=== PATIENT | male | born 1950 | race Hispanic/Latino ===

== ENCOUNTER 2021-12-06 09:23 | Inpatient (IN) | payer OTHER, SELFPAY ==
--- NOTE | 2021-12-06 10:19 | RAD REPORT ---
EXAM DESCRIPTION: CT - Head Brain Wo Cont - 12/06/2021 10:07 am CLINICAL HISTORY: Neuro deficit, acute, stroke suspected COMPARISON: No comparisons TECHNIQUE: Axial 5 mm thick images of the head were obtained without IV contrast. All CT scans are performed using dose optimization technique as appropriate and may include automated exposure control or mA/KV adjustment according to patient size. FINDINGS: No intracranial hemorrhage, mass, edema or shift of mid-line structures. No cortical based infarction seen. No cortical edema or sulcal effacement. Atrophy changes are mild. Ventricles are in proportion to any volume loss. No abnormal extra-axial fluid collections. Prominent chronic ischemic changes are seen throughout the cerebral white matter and extending to a lesser degree in the basal ganglia and thalamus tissues. There may be minimal brainstem chronic ischemic change as well. Arteria l tree calcifications are present. Mastoid air cells are clear. Mucosal thickening and air-fluid level present in the left maxillary sin us where there is circumferential sinus wall thickening. No acute bony findings. IMPRESSION: No acute intracranial finding identifiable. Moderate severity chronic ischemic change throughout the cerebral white matter extending into the bas al ganglia and thalamus tissues to a lesser degree. Chronic ischemic changes can mask nonhemorrhagic acute infarction. MR brain followup can be obtained if there is ongoing concern for acute ischemia.
[2021-12-06 10:30] LABS: Absolute Lymphocytes (CBC) 0.8 K/uL (0.7-4.9); Hematocrit 46.9 % (39.6-49.0); Lymphocytes % 12.1 % (15.3-44.8); MPV 7.8 fL (7.6-11.3); RBC Red Blood Cell Count 4.82 M/uL (4.33-5.43)
[2021-12-06 10:31] LABS: Protime INR 1.19
[2021-12-06 10:42] LABS: Bilirubin Direct 0.2 mg/dL (0-0.2); Bilirubin Total 0.8 mg/dL (0.2-1.0); Magnesium 2.3 mg/dL (1.8-2.4); Potassium 3.6 mmol/L (3.5-5.1); Protein, Total 8.5 g/dL (6.4-8.2); Troponin High Sensitivity 4.9 pg/mL (<58.9)
--- NOTE | 2021-12-06 10:55 | RAD REPORT ---
EXAM DESCRIPTION: MRI - Brain Wo Cont - 12/06/2021 10:34 am CLINICAL HISTORY: Neuro deficit, acute, stroke suspected COMPARISON: Head Brain Wo Cont dated 12/06/2021 TECHNIQUE: Sagittal T1-weighted images were obtained along with axial PD, heavily T2-weighted and T2 -FLAIR images. Axial DWI and ADC mapping sequences were also obtained along with coronal heavily T2-w eighted images. FINDINGS: No intracranial hemorrhage is present. In the posterior most aspect of the left insular co rtex there is a 10 millimeter sized area of abnormal diffusion. There is corresponding area of dimini shed signal on ADC mapping. Additional areas of abnormal restricted diffusion are scattered in the le ft parietal white matter from subcortical tuft periventricular in distribution. These also have corre sponding areas of diminished signal on ADC mapping. These acute stroke findings are superimposed on t he prominent chronic ischemic pattern seen on the earlier CT study. Atrophy changes are mild. Ventric les are normal in size. There is no edema or shift of midline structures. No extra-axial fluid collec tions. King-matter/white matter junction is preserved. Signal voids are seen as a normal finding in t he major intracranial vessels. No globe or orbital content abnormality seen. No sella or supra sella abnormality. 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 Scattered acute/subacute nonhemorrhagic infarction foci in the left parietal white matter from subcor tical to periventricular in location.
[2021-12-06] MEDS ORDERED: ASPIRIN 81 MG CHEWABLE TABLET ONE (11:13)
--- NOTE | 2021-12-06 11:14 | RAD REPORT ---
EXAM DESCRIPTION: RAD - Chest Single View - 12/06/2021 10:40 am CLINICAL HISTORY: weakness COMPARISON: None available TECHNIQUE: AP portable chest image was obtained 12/06/2021 10:40 am . FINDINGS: Lungs are clear. Hilar regions within normal limits. Heart and vasculature are normal. No measurable pleural effusion and no pneumothorax. No acute bony abnormality seen. No acute aortic find ings suspected. IMPRESSION: No acute cardiopulmonary process.
[2021-12-06 11:57] LABS: SARS-COV-2 RT PCR NEGATIVE (NEGATIVE)
--- NOTE | 2021-12-06 11:59 | RAD REPORT ---
EXAM DESCRIPTION: CT - Neck Angio - 12/06/2021 11:37 am CLINICAL HISTORY: Neuro deficit, acute, stroke suspected TECHNIQUE: During dynamic enhancement using nonionic IV contrast, axial 2 mm thick images of the nec k were obtained. Sagittal and axial reconstruction images were generated using MIP technique and revi ewed. All CT scans are performed using dose optimization technique as appropriate and may include automated exposure control or mA/KV adjustment according to patient size. COMPARISON: MRI brain same date FINDINGS: No aneurysm or vascular malformation identified. No carotid or vertebral dissection. No aortic arch or great vessel origin abnormality seen. Patient has normal variant bovine arch config uration. Vertebral artery origins unremarkable as well. No stenosis, vasculitis or other significant carotid artery finding. No focal abnormality of either vertebral artery. Basilar artery is normal. IMPRESSION: Negative CT angio neck examination for acute or significant finding.
[2021-12-06] MEDS ORDERED: NA CHLORIDE 0.9% 250 ML ONE (12:03)
[2021-12-06] MEDS ORDERED: FOLIC ACID 5 MG/ML VIAL ONE (12:04)
--- NOTE | 2021-12-06 12:07 | RAD REPORT ---
EXAM DESCRIPTION: CT - Head angio - 12/06/2021 11:37 am CLINICAL HISTORY: Neuro deficit, acute, stroke suspected TECHNIQUE: During dynamic enhancement using nonionic IV contrast, axial 1 millimeter thick images of the head were obtained. Sagittal and axial reconstruction images were generated using MIP technique and reviewed. All CT scans are performed using dose optimization technique as appropriate and may include automated exposure control or mA/KV adjustment according to patient size. COMPARISON: No aneurysm or vascular malformation identifiable. Atherosclerotic wall calcifications are present in the distal internal carotid arteries with no significant luminal narrowing. Patient esteves s normal variant persistent origin of the right posterior cerebral artery. There is a large rig ht posterior communicating artery. The anterior cerebral artery A1 segment is absent or very small. A nterior communicating artery is present. The anterior, middle and posterior cerebral artery periphera l distribution show no named branch occlusion, vasculitis or significant atherosclerotic changes. No specific vessel abnormality for the known acute areas of left cerebral CVA. FINDINGS: No significant atherosclerotic changes are identifiable. No named branch occlusion or specific CTA finding corresponding to the areas of known left cerebral i nfarction. Major venous sinuses are patent. IMPRESSION: Negative CT angio head examination.
--- NOTE | 2021-12-06 12:39 | ER ---
Nurse's Notes [facility] Name: aGry Shanks Age: 71 yrs Sex: Male : 1950 Arrival Date: 12/06/2021 Time: : Bed 16 Private MD: Diagnosis: Cerebral infarction, unspecified Presentation: 12/06 09:33 Chief complaint: Pt's son states "he's been disoriented since yesterday and he slept aa5 most of the day yesterday". pt's son states "I just noticed he was having trouble using his right arm today putting his seat belt on". Expressive aphasia noted during triage, no arm drift, no facial droop. 09:33 Coronavirus screen: At this time, the client does not indicate any symptoms associated aa5 with coronavirus-19. Ebola Screen: No symptoms or risks identified at this time. Initial Sepsis Screen: Does the patient meet any 2 criteria? No. Patient's initial sepsis screen is negative. Does the patient have a suspected source of infection? No. Patient's initial sepsis screen is negative. Risk Assessment: Do you want to hurt yourself or someone else? Unable to obtain. Onset of symptoms was November 2021. 09:33 Acuity: DANY 2 aa5 09:33 Method Of Arrival: Ambulatory aa5 Triage Assessment: 10:06 General: Appears in no apparent distress. comfortable, Behavior is calm, cooperative, ap3 appropriate for age. Pain: Denies pain. Neuro: Level of Consciousness is awake, alert, Oriented to person, place, Speech with expressive aphasia noted. Cardiovascular: Patient's skin is warm and dry. Respiratory: Airway is patent Respiratory effort is even, unlabored. Historical: - Allergies: : No Known Allergies; aa5 - Home Meds: 12:20 omeprazole 40 mg Oral cpDR 1 cap once daily [Active]; allopurinol 300 mg Oral tab 1 tab ap3 once daily [Active]; metoprolol tartrate 50 mg Oral tab 1 tab 2 times per day [Active]; amlodipine 10 mg tab 1 tab once daily [Active]; - PMHx: :44 Hypertensive disorder; aa5 - PSHx: :44 None; aa5 - Immunization history:: Adult Immunizations unknown. - Social history:: Smoking status: Patient denies any tobacco usage or history of. Screenin:05 Abuse screen: Denies threats or abuse. Nutritional screening: No deficits noted. ap3 Tuberculosis screening: No symptoms or risk factors identified. Fall Risk None identified. No fall in past 12 months (0 pts). Secondary diagnosis (15 points) altered mental status. IV access (20 points). Ambulatory Aid- None/Bed Rest/Nurse Assist (0 pts). Total Marie Fall Scale indicates Low Risk Score (25-44 pts). Fall prevention measures have been instituted. Side Rails Up X 2 Placed close to Nursing Station Frequent Obs/Assesments occuring Family Present and informed to notify staff if they need to leave bedside As available Patient and Family Educated on Fall Prevention Program and strategies. Assessment: 10:08 Pain: Denies pain. ap3 10:59 General: Appears comfortable, Behavior is calm, cooperative. Neuro: Speech with ap3 expressive aphasia noted. 11:44 Reassessment:. ap3 Vital Signs: 09:33 BP 141 / 71; Pulse 80; Resp 18 S; Temp 98.2(O); Pulse Ox 98% on R/A; Weight 96.62 kg aa5 (M); 11:00 BP 140 / 79 (auto/); Pulse 73; Pulse Ox 99% on R/A; ap3 11:44 BP 152 / 82; Pulse 73; Pulse Ox 97% on R/A; ap3 12:37 BP 141 / 91; Pulse 75; Pulse Ox 97% on R/A; ap3 NIH Stroke Scale Scores: 10:05 NIHSS Score: 7 ap3 ED Course: 09:25 Patient arrived in ED. as 09:33 Arm band placed on Patient placed in an exam room, on a stretcher. aa5 09:34 Papito Centeno PA is PHCP. jm 09:34 Philip Kay MD is Attending Physician. jm 09:35 Ning Krishna, COLIN is Primary Nurse. ap3 09:44 Triage completed. aa5 09:54 EKG done, by ED staff, reviewed by Papito BONE. mh5 09:55 Patient has correct armband on for positive identification. Placed in gown. Bed in low mh5 position. Call light in reach. Side rails up X2. Adult w/ patient. Warm blanket given. machine chain maker on. Pulse ox on. NIBP on. 10:02 Inserted saline lock: 20 gauge in left antecubital area, using aseptic technique. Blood ap3 collected. 10:08 CT Head Brain wo Cont In Process Unspecified. EDMS 10:35 MRI - Brain Wo Cont In Process Unspecified. EDMS 10:42 XRAY Chest (1 view) In Process Unspecified. EDMS 10:47 COVID-19/FLU A+B (Document "Date of Onset" if Symptomatic) Sent. mh5 10:47 COVID swab sent to lab. mh5 11:[address] stretcher. ap3 11:39 Head angio In Process Unspecified. EDMS 11:39 CT Neck Angio In Process Unspecified. EDMS 12:23 Admitting physician to see patient. ap3 12:38 Saqib Izquierdo MD is Hospitalizing Provider. jmm 14:30 No provider procedures requiring assistance completed. Patient admitted, IV remains in ap3 place. Administered Medications: 11:14 Drug: Aspirin Chewable Tablet 324 mg Route: PO; ap3 14:31 Follow up: Response: No adverse reaction ap3 11:16 CANCELLED (Duplicate Order): PlaVIX (clopidogrel) 75 mg PO once jmm 11:17 CANCELLED (Duplicate Order): Eliquis (apixaban) 5 mg PO once jmm 12:07 Drug: NS 0.9% 250 ml Route: IV; Rate: calculated rate; Site: left antecubital; ap3 14:31 Follow up: Response: No adverse reaction; IV Status: Completed infusion ap3 12:08 Drug: foLIC Acid 1 mg Route: IVPB; Site: left antecubital; ap3 14:31 Follow up: IV Status: Completed infusion ap3 Outcome: 12:39 Decision to Hospitalize by Provider. jmm 14:30 Admitted to ER Hold. Please see [facility] for further documentation. ap3 14:30 Condition: good 14:30 Discharge instructions given to patient, family, Instructed on the need for admit. 18:42 Patient left the ED. ap3 NIH Stroke Scale - NIH Stroke Score Date: 12/06/2021 Time: 10:05 Total Score = 7 1a. Level of Consciousness (LOC) - 0(Alert) 1b. Level of Consciousness (LOC) (Month \\T\\ Age) - 1(One) 1c. LOC Commands (Open \\T\\ Closes Eyes/Group Practice Pediatrician) - 0(Both) 2. Best Gaze (Lateral Gaze Paresis) - 0(Normal) 3. Visual Field Loss - 1(Partial hemianopia) 4. Facial Palsy - 0(Normal) 5a. Left Arm: Motor (10-second hold) - 0(No drift) 5b. Right Arm: Motor (10-second hold) - 0(No drift) 6a. Left Leg: Motor (5-second hold - always test supine) - 0(No drift) 6b. Right Leg: Motor (5-second hold - always test supine) - 0(No drift) 7. Limb Ataxia (finger/nose \\T\\ heel/[place] - test with eyes open) - 1(Present in one limb) 8. Sensory Loss (pinprick arms/legs/face) - 0(Normal) 9. Best Language: Aphasia (description/naming/reading) - 2(Severe aphasia) 10. Dysarthria (speech clarity - read or repeat words) - 2(Severe) 11. Extinction and Inattention (visual/tactile/auditory/spatial/personal) - 0(No abnormality) Initials: ap3 Signatures: Dispatcher [employer] EDMS Papito Centeno PA PA jmm Martinez, Amelia as Calderon, Audri, RN RN aa5 Esthela Cisneros [facility] Ning Krishna RN RN ap3 Corrections: (The following items were deleted from the chart) 09:45 09:44 PMHx: None; aa5 aa5 10:04 10:03 Neuro: ap3 ap3
--- NOTE | 2021-12-06 12:39 | EDPHYS ---
Physician Documentation [facility] Name: Gary Shanks Age: 71 yrs Sex: Male : 1950 Arrival Date: 12/06/2021 Time: : Bed 16 Private MD: ED Physician Philip Kay HPI: 12/06 09:49 This 71 yrs old Male presents to ER via Ambulatory with complaints of jmm disoriented. 09:49 The patient presents with decreased mental status, disorientation. Onset: The jmm symptoms/episode began/occurred yesterday. Possible causes: unknown. . 10:38 Associated signs and symptoms: Pertinent negatives:. jmm 10:38 Current symptoms: In the emergency department the patient's symptoms. jmm 10:38 This is a 71 year old male with a history of HTN that presents to the ED with ams, jmm confusion beginning yesterday according to the patient's son. Patient has had cough, congestion over the past week and slept most of the day yesterday. Son stated patient was having difficulty using his right arm to put his seatbelt on enroute to the ER. . Historical: - Allergies: 09:44 No Known Allergies; aa5 - Home Meds: 12:20 omeprazole 40 mg Oral cpDR 1 cap once daily [Active]; allopurinol 300 mg Oral tab 1 tab ap3 once daily [Active]; metoprolol tartrate 50 mg Oral tab 1 tab 2 times per day [Active]; amlodipine 10 mg tab 1 tab once daily [Active]; - PMHx: 09:44 Hypertensive disorder; aa5 - PSHx: 09:44 None; aa5 - Immunization history:: Adult Immunizations unknown. - Social history:: Smoking status: Patient denies any tobacco usage or history of. ROS: 12:35 Constitutional: Positive for fatigue. jmm 12:35 Respiratory: Positive for cough. 12:35 Neuro: Positive for speech changes. 12:35 All other systems are negative. Exam: 12:35 Head/Face: atraumatic. Eyes: EOMI, no conjunctival erythema appreciated ENT: Moist jmm Mucus Membranes Neck: Trachea midline, Supple Chest/axilla: Normal chest wall appearance and motion. Cardiovascular: Regular rate and rhythm. No edema appreciated Respiratory: Normal respirations, no respiratory distress appreciated Abdomen/GI: Non distended, soft Back: Normal ROM Skin: General appearance color normal 12:35 Constitutional: The patient appears in no acute distress, alert, awake. 12:35 Musculoskeletal/extremity: ROM: intact in all extremities. 12:35 Skin: Appearance: Color: normal in color. 12:35 Neuro: Orientation: is normal, Mentation: is normal, Memory: is normal, Cranial nerves: Facial palsy and sensory deficits are absent. Speech is slowed, Cerebellar function: dysmetria is noted on the right, Motor: moves all fours, strength is 5/5 in all extremities. 12:35 Psych: Behavior/mood is pleasant, cooperative. Vital Signs: 09:33 BP 141 / 71; Pulse 80; Resp 18 S; Temp 98.2(O); Pulse Ox 98% on R/A; Weight 96.62 kg aa5 (M); 11:00 BP 140 / 79 (auto/); Pulse 73; Pulse Ox 99% on R/A; ap3 11:44 BP 152 / 82; Pulse 73; Pulse Ox 97% on R/A; ap3 12:37 BP 141 / 91; Pulse 75; Pulse Ox 97% on R/A; ap3 NIH Stroke Scale Scores: 10:05 NIHSS Score: 7 ap3 MDM: 09:49 Patient medically screened. [facility] 12:37 Data reviewed: vital signs, nurses notes. Counseling: I had a detailed discussion with monica the patient and/or guardian regarding: the historical points, exam findings, and any diagnostic results supporting the discharge/admit diagnosis, lab results, radiology results, the need for further work-up and treatment in the hospital. ED course: I discussed the patient with Dr. Izquierdo and Dr. Guillermo whom accepted the patient for admission. . 12/06 09:50 Order name: Basic Metabolic Panel; Complete Time: 10:44 [facility] 12/06 09:50 Order name: CBC with Diff; Complete Time: 10:34 [facility] 12/06 09:50 Order name: LFT's; Complete Time: 10:44 [facility] 12/06 09:50 Order name: Magnesium; Complete Time: 10:44 [facility] 12/06 09:50 Order name: NT PRO-BNP; Complete Time: 10:44 [facility] 12/06 09:50 Order name: PT-INR; Complete Time: 10:34 [facility] 12/06 09:50 Order name: Troponin HS; Complete Time: 10:44 [facility] 12/06 09:53 Order name: Blood Culture Adult (2) [facility] 12/06 09:53 Order name: Procalcitonin; Complete Time: 11:06 [facility] 12/06 09:53 Order name: Lactate; Complete Time: 10:41 [facility] 12/06 10:03 Order name: Urine Culture [facility] 12/06 10:38 Order name: COVID-19/FLU A+B (Document "Date of Onset" if Symptomatic); Complete Time: [facility] 12:01 12/06 11:16 Order name: Lipid Profile; Complete Time: 12:52 [facility] 12/06 13:27 Order name: Magnesium [facility] 12/06 09:50 Order name: XRAY Chest (1 view); Complete Time: 11:32 [facility] 12/06 09:50 Order name: CT Head Brain wo Cont; Complete Time: 10:24 [facility] 12/06 10:03 Order name: MRI - Brain Wo Cont; Complete Time: 11:06 [facility] 12/06 11:19 Order name: CT Head Angio [facility] 12/06 11:19 Order name: CT Neck Angio; Complete Time: 12:01 [facility] 12/06 11:23 Order name: Head angio; Complete Time: 12:14 [facility] 12/06 13:27 Order name: Echo with Doppler [facility] 12/06 13:27 Order name: Thyroid Stimulating Hormone [facility] 12/06 13:27 Order name: CBC with Automated Diff [facility] 12/06 13:27 Order name: CBC with Automated Diff [facility] 12/06 13:27 Order name: CKMB Creatine Kinase MB [facility] 12/06 13:27 Order name: CKMB Creatine Kinase MB [facility] 12/06 13:27 Order name: Comprehensive Metabolic Panel [facility] 12/06 13:27 Order name: Comprehensive Metabolic Panel [facility] 12/06 13:27 Order name: Creatine Phosphokinase [facility] 12/06 13:27 Order name: Creatine Phosphokinase [facility] 12/06 09:50 Order name: EKG; Complete Time: 09:51 [facility] 12/06 09:50 Order name: Cardiac monitoring; Complete Time: 10:14 [facility] 12/06 09:50 Order name: EKG - Nurse/Tech; Complete Time: 09:52 [facility] 12/06 09:50 Order name: IV Saline Lock; Complete Time: 10:14 [facility] 12/06 09:50 Order name: Labs collected and sent; Complete Time: 10:14 [facility] 12/06 09:50 Order name: O2 Per Protocol; Complete Time: 10:14 [facility] 12/06 09:50 Order name: O2 Sat Monitoring; Complete Time: 10:14 [facility] 12/06 13:21 Order name: Social Service Consult [facility] 12/06 13:27 Order name: CONS Physician Consult [facility] 12/06 13:27 Order name: CONS Physician Consult [facility] 12/06 13:27 Order name: Occupational Therapy Consult [facility] 12/06 13:27 Order name: Physical Therapy Consult [facility] 12/06 13:27 Order name: Heart Healthy [facility] 12/06 13:27 Order name: NPO [facility] 12/06 13:27 Order name: NPO [facility] 12/06 13:27 Order name: NPO [facility] Administered Medications: 11:14 Drug: Aspirin Chewable Tablet 324 mg Route: PO; ap3 14:31 Follow up: Response: No adverse reaction ap3 11:16 CANCELLED (Duplicate Order): PlaVIX (clopidogrel) 75 mg PO once [facility] 11:17 CANCELLED (Duplicate Order): Eliquis (apixaban) 5 mg PO once [facility] 12:07 Drug: NS 0.9% 250 ml Route: IV; Rate: calculated rate; Site: left antecubital; ap3 14:31 Follow up: Response: No adverse reaction; IV Status: Completed infusion ap3 12:08 Drug: foLIC Acid 1 mg Route: IVPB; Site: left antecubital; ap3 14:31 Follow up: IV Status: Completed infusion ap3 Disposition: 19:04 Co-signature as Attending Physician, Philip Kay MD. rn Disposition Summary: 12/06/21 12:39 Hospitalization Ordered Hospitalization Status: Inpatient Admission [facility] Provider: Saqib Izquierdo Location: Telemetry/MedSurg (Inpatient) [facility] Condition: Stable jm Problem: new jmm Symptoms: are unchanged [facility] Bed/Room Type: Standard [facility] Room Assignment: 207(12/06/21 17:05) bd Diagnosis - Cerebral infarction, unspecified [facility] Forms: - Medication Reconciliation Form jmm - SBAR form [facility] NIH Stroke Scale - NIH Stroke Score Date: 12/06/2021 Time: 10:05 Total Score = 7 1a. Level of Consciousness (LOC) - 0(Alert) 1b. Level of Consciousness (LOC) (Month \\T\\ Age) - 1(One) 1c. LOC Commands (Open \\T\\ Closes Eyes/[employer] Steam [employer]) - 0(Both) 2. Best Gaze (Lateral Gaze Paresis) - 0(Normal) 3. Visual Field Loss - 1(Partial hemianopia) 4. Facial Palsy - 0(Normal) 5a. Left Arm: Motor (10-second hold) - 0(No drift) 5b. Right Arm: Motor (10-second hold) - 0(No drift) 6a. Left Leg: Motor (5-second hold - always test supine) - 0(No drift) 6b. Right Leg: Motor (5-second hold - always test supine) - 0(No drift) 7. Limb Ataxia (finger/nose \\T\\ heel/[place] - test with eyes open) - 1(Present in one limb) 8. Sensory Loss (pinprick arms/legs/face) - 0(Normal) 9. Best Language: Aphasia (description/naming/reading) - 2(Severe aphasia) 10. Dysarthria (speech clarity - read or repeat words) - 2(Severe) 11. Extinction and Inattention (visual/tactile/auditory/spatial/personal) - 0(No abnormality) Initials: ap3 Signatures: Dispatcher [employer] EDMS Migdalia Desai Joel, PA PA [facility] Philip Kay MD MD rn Calderon, Audri, RN RN aa5 Ning Krishna RN RN ap3 Corrections: (The following items were deleted from the chart) 09:45 09:44 PMHx: None; aa5 [email or web address] 11:16 11:15 PlaVIX (clopidogrel) 75 mg PO once ordered. [facility] 11:17 11:16 Eliquis (apixaban) 5 mg PO once ordered. [facility] 12:36 10:38 This is a 71 year old male with a history of HTN that presents to the ED [facility] with ams, confusion beginning yesterday according to the patient's son. Patient has had cough, congestion over the past week and slept most of the day yesterday. . monica Chen:05 12:39 [facility] bd
--- NOTE | 2021-12-06 13:16 | P.HP ---
Certification for Inpatient With expected LOS: >2 Midnights Patient will require the following post-hospital care: Rehabilitation Practitioner: I am a practitioner with admitting privileges, knowledge of patient current condition, hospital course, and medical plan of care. Services: Services provided to patient in accordance with Admission requirements found in Title 42 Section 412.3 of the Code of Federal Regulations Patient History Date of Service: 12/06/21 Reason for admission: Inability to move the right arm, weakness History of Present Illness: 71-year-old male past medical history of hypertension, GI bleed status post EGD finding of both gastric and duodenal ulcer in 2014 on chronic PPI, admitted now after complaining of weakness chest congestion since the last 1 week. No associated fever or chills. No sick contact. Patient was noted by son to have difficulty with moving the right above the shoulder level earlier this morning. He was also felt to have soft speech difficulty. He was brought to the emergency room in the emergency room patient was noted with mild dysarthria izkcca-sl-fdra test on the right side. He had a head CT done with no acute intracranial pathology or bleed. He had a CT of the head and neck done which was normal findings. 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 Patient also had an EKG showing new onset A. fib but rate controlled at 75 bpm. Son states no previous history of cardiac disease. neurology has been consulted and recommended. At the time of interview dysarthria has resolved, still mild difficulty with giyiab-gr-znzq test but no asymmetrical weakness elicited. He has been admitted for new onset CVA as well as atrial fibrillation Allergies No Known Allergies Allergy (Verified 05/06/15 00:31) Home Medications: Amlodipine [Norvasc*] 10 mg PO DAILY #30 tab 05/08/15 Metoprolol Tartrate [Lopressor] 50 mg PO BID #60 tab 05/08/15 Pantoprazole [Protonix Tab*] 40 mg PO BIDAC #60 tab 05/08/15 chlordiazePOXIDE HCl [Librium*] 10 mg PO TID #60 cap 05/08/15 Colchicine [Colcrys *] 0.6 mg PO DAILY PRN #30 tab 05/09/15 allopurinoL [Zyloprim*] 100 mg PO DAILY #30 tab 05/09/15 - Past Medical/Surgical History Diabetic: No -: Hypertension -: GI bleed -: Gastric or duodenal ulcer -: Status post EGD in 2015 - Family History Family History: Reviewed- Non-Contributory - Family History Mother -: Heart disease Father -: GI disease - Social History Smoking Status: Former smoker Counseled patient to stop smoking for: less than 10 minutes Smoking therapy provided: No Patient receptive to therapy: No Alcohol use: Yes CD- Drugs: No Caffeine use: Yes Place of Residence: Home Review of Systems 10-point ROS is otherwise unremarkable Physical Examination - Physical Exam General: Alert, In no apparent distress, Oriented x3 (Average built elderly male) HEENT: Atraumatic, Normocephalic, PERRLA Neck: Supple, 2+ carotid pulse no bruit, JVD not distended Respiratory: Clear to auscultation bilaterally, Normal air movement Cardiovascular: No edema, Normal pulses, Normal S1 S2, No murmurs, Irregular heart rate/rhythm Capillary refill: <2 Seconds Gastrointestinal: Normal bowel sounds, Soft and benign, Non-distended, No tenderness Musculoskeletal: No clubbing, No swelling, No contractures Neurological: Normal gait, Normal speech, Normal strength at 5/5 x4 extr, Sensation intact, Cranial nerves 3-12 intact, Normal reflexes 2+, Other (mild diff with right fingr to nose test , no pronator drift ) External genitalia: No edema, No lesions - Studies Laboratory Data (last 24 hrs) 12/06/21 10:03: Triglycerides 116, Cholesterol 208 H, HDL Cholesterol 54, Cholesterol/HDL Ratio 3.85 12/06/21 10:03: PT 13.1 H, INR 1.19 12/06/21 10:03: WBC 6.9, Hgb 16.3, Hct 46.9, Plt Count 260 12/06/21 10:03: Sodium 133 L, Potassium 3.6, BUN 14, Creatinine 1.29, Glucose 103, Magnesium 2.3, Total Bilirubin 0.8, AST 28, ALT 31, Alkaline Phosphatase 112 Assessment and Plan Discharge Plan: Home Plan to discharge in: 48 Hours - Advance Directives Does patient have a Living Will: No Does patient have a Durable POA for Healthcare: No - Code Status/Comfort Care Code Status: Full Code Physician Review: Patient Assessed, Agree with Above Assessment and Plan Physician Review Additional Text: CT - Neck Angio - 12/06/2021 11:37 am CLINICAL HISTORY: Neuro deficit, acute, stroke suspected TECHNIQUE: During dynamic enhancement using nonionic IV contrast, axial 2 mm thick images of the neck were obtained. Sagittal and axial reconstruction images were generated using MIP technique and reviewed. All CT scans are performed using dose optimization technique as appropriate and may include automated exposure control or mA/KV adjustment according to patient size. COMPARISON: MRI brain same date FINDINGS: No aneurysm or vascular malformation identified. No carotid or vertebral dissection. No aortic arch or great vessel origin abnormality seen. Patient has normal variant bovine arch configuration. Vertebral artery origins unremarkable as well. No stenosis, vasculitis or other significant carotid artery finding. No focal abnormality of either vertebral artery. Basilar artery is normal. IMPRESSION: Negative CT angio neck examination for acute or significant finding. MRI brain No globe or orbital content abnormality seen. No sella or supra sella abnormality. 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 Scattered acute/subacute nonhemorrhagic infarction foci in the left parietal white matter from subcortical to periventricular in location. Chest Single View - 12/06/2021 10:40 am CLINICAL HISTORY: weakness COMPARISON: None available TECHNIQUE: AP portable chest image was obtained 12/06/2021 10:40 am . FINDINGS: Lungs are clear. Hilar regions within normal limits. Heart and vasculature are normal. No measurable pleural effusion and no pneumothorax. No acute bony abnormality seen. No acute aortic findings suspected. IMPRESSION: No acute cardiopulmonary process. Impression/plan New onset atrial fibrillation -left cerebral infarct/CVA -Hypertension -History of GI bleed Plan We will admit patient to inpatient status Will consult formal neurology consultrecommend initiating Plavix/Eliquis Obtain echocardiogram given new onset A. fib Obtain lipid panel in a.m. Cardiology consult Seen rate control, resume patient home dose of metoprolol Obtain TSH/magnesium level Restart PPIincreased dose to twice daily Follow-up plan for Eliquis use for DVT prophylaxis also Advance directivefull code Patient and son at bedside discussed with in detail. We will consult case management as well as PT/OT for acute rehab evaluation Time Spent Managing Pts Care (In Minutes): 70
[2021-12-06] MEDS ORDERED: ALBUTEROL 2.5 MG/3 ML NEB SOL NEB PRN (13:19)
[2021-12-06] MEDS ORDERED: MORPHINE 2 MG/ML SYR IV PRN (13:19)
[2021-12-06] MEDS ORDERED: ACETAMINOPHEN 500 MG TAB PO PRN (13:19)
[2021-12-06] MEDS ORDERED: ONDANSETRON 4 MG/2 ML VIAL IV PRN (13:19)
[2021-12-06] MEDS ORDERED: LORAZEPAM 0.5 MG TABLET PO PRN (13:24)
[2021-12-06] MEDS: NA CHLORIDE 0.9% 1,000 ML IV SCH (14:00)
[2021-12-06 14:22] VITALS: BMI 29.7
[2021-12-06] MEDS ORDERED: NA CHLORIDE 0.9% 1,000 ML ONE (14:40)
[2021-12-06] MEDS: METOPROLOL TAR 25 MG TAB PO SCH (20:33)
[2021-12-06] MEDS: ATORVASTATIN 80 MG TAB PO SCH (20:33)
[2021-12-06] MEDS: PANTOPRAZOLE 40MG TABLET PO SCH (20:33)
[2021-12-06] MEDS: APIXABAN 5 MG TABLET PO SCH (20:33)
[2021-12-07] MEDS: NA CHLORIDE 0.9% 1,000 ML IV SCH (03:39)
[2021-12-07] MEDS: METOPROLOL TAR 25 MG TAB PO SCH ×2 (06:05→16:41)
[2021-12-07 06:07] LABS: Absolute Lymphocytes (CBC) 1.2 K/uL (0.7-4.9); Hematocrit 43.9 % (39.6-49.0); Lymphocytes % 22.5 % (15.3-44.8); MPV 7.3 fL (7.6-11.3)
[2021-12-07 06:25] LABS: ALT/SGPT 27 U/L (12-78); AST/SGOT 22 U/L (15-37); Albumin 3.3 g/dL (3.4-5.0); Alkaline Phosphatase 93 U/L (45-117); BUN Blood Urea Nitrogen 11 mg/dL (7-18); Bicarbonate 25 mmol/L (21-32); Bilirubin Total 0.6 mg/dL (0.2-1.0); Creatine Phosphokinase 89 U/L (39-308); Glucose Level 112 mg/dL (74-106); Potassium 3.5 mmol/L (3.5-5.1); Protein, Total 7.2 g/dL (6.4-8.2); Sodium Level 136 mmol/L (136-145)
[2021-12-07 06:31] LABS: CKMB Creatine Kinase MB < 1.0 ng/mL (1.0-3.6)
[2021-12-07 06:31] LABS: Urine Appearance Clear (Clear); Urine Bilirubin Negative (Negative); Urine Blood Trace-intact (Negative); Urine Color Yellow (Yellow); Urine Glucose Negative (Negative); Urine Protein Negative (Negative)
[2021-12-07 06:36] LABS: Urine Bacteria >50 /HPF (NONE SEEN); Urine Microscopic Reflex ORDER UMIC; Urine RBC <5 /HPF (NONE SEEN)
--- NOTE | 2021-12-07 08:54 | P.PN ---
Subjective Date of Service: 12/07/21 Chief Complaint: Inability to move the right arm, weakness Subjective: No new changes, Tolerating diet (Seen today, feels fine, no new weakness) Physical Examination - Vital Signs Temperature: 98.9 F Blood Pressure: 115/63 Pulse: 67 Respirations: 18 Pulse Ox (%): 94 - Studies Laboratory Data (last 24 hrs) 12/06/21 10:03: Triglycerides 116, Cholesterol 208 H, HDL Cholesterol 54, Cholesterol/HDL Ratio 3.85 12/06/21 10:03: PT 13.1 H, INR 1.19 12/06/21 10:03: WBC 6.9, Hgb 16.3, Hct 46.9, Plt Count 260 12/06/21 10:03: Sodium 133 L, Potassium 3.6, BUN 14, Creatinine 1.29, Glucose 103, Magnesium 2.3, Total Bilirubin 0.8, AST 28, ALT 31, Alkaline Phosphatase 112 Assessment And Plan Physician Review: Patient Assessed, Agree with Above Assessment and Plan Physician Review Additional Text: CT - Neck Angio - 12/06/2021 11:37 am CLINICAL HISTORY: Neuro deficit, acute, stroke suspected TECHNIQUE: During dynamic enhancement using nonionic IV contrast, axial 2 mm thick images of the neck were obtained. Sagittal and axial reconstruction images were generated using MIP technique and reviewed. All CT scans are performed using dose optimization technique as appropriate and may include automated exposure control or mA/KV adjustment according to patient size. COMPARISON: MRI brain same date FINDINGS: No aneurysm or vascular malformation identified. No carotid or vertebral dissection. No aortic arch or great vessel origin abnormality seen. Patient has normal variant bovine arch configuration. Vertebral artery origins unremarkable as well. No stenosis, vasculitis or other significant carotid artery finding. No focal abnormality of either vertebral artery. Basilar artery is normal. IMPRESSION: Negative CT angio neck examination for acute or significant finding. MRI brain No globe or orbital content abnormality seen. No sella or supra sella abnormality. 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 Scattered acute/subacute nonhemorrhagic infarction foci in the left parietal white matter from subcortical to periventricular in location. Chest Single View - 12/06/2021 10:40 am CLINICAL HISTORY: weakness COMPARISON: None available TECHNIQUE: AP portable chest image was obtained 12/06/2021 10:40 am . FINDINGS: Lungs are clear. Hilar regions within normal limits. Heart and vasculature are normal. No measurable pleural effusion and no pneumothorax. No acute bony abnormality seen. No acute aortic findings suspected. IMPRESSION: No acute cardiopulmonary process. Physical examination Generalelderly male, average build, calm, not in any distress, on room air HEENTPERLA, extraocular motor movement intact Neckno JVD, no carotid bruit Respiratorygood air entry bilaterally no crepitations CardiovascularS1-S2 irregular but rate controlled, no murmur GIfull soft bowel sounds positive no organomegaly Extremitiesno pedal edema, no calf tenderness Neuroalert, oriented, conversant x3 No pronator drift, Impression/plan New onset atrial fibrillation -left cerebral infarct/CVA -Hypertension -History of GI bleed UTI Plan Borderline low blood pressure noted yesterday, on NS Status post reduce home dose of metoprolol, A. fib rate controlled now, continue to avoid hypotension Continue started Plavix/Eliquis for A. fib Follow-up pending echocardiogram today Follow formal neurology consult Follow PT and OT evaluation today TSH and magnesium within normal range Start empirical antibiotics for UTI Plan for discharge to rehab or home PT pending physical therapy evaluation Continue PPI for GI prophylaxis Advance directivefull code 12/07/21 08:51 Time Spent Managing PTS Care (In Minutes): 35
[2021-12-07] MEDS: levoFLOXacin 750 MG TAB PO SCH (09:06)
[2021-12-07] MEDS: APIXABAN 5 MG TABLET PO SCH ×2 (09:06→21:09)
[2021-12-07] MEDS: allopurinoL 300 MG TAB PO SCH (09:06)
[2021-12-07] MEDS: CLOPIDOGREL 75 MG TABLET PO SCH (09:06)
[2021-12-07] MEDS: PANTOPRAZOLE 40MG TABLET PO SCH ×2 (09:06→16:40)
--- NOTE | 2021-12-07 09:35 | EKG ---
Test Date: 2021-12-06 Test Time: 09:47:56 Hotel Manager: YUE MEASUREMENT RESULTS: Intervals: Rate: 87 MO: QRSD: 106 QT: 386 QTc: 464 [place]: P: MO: QRS: 101 T: -44 INTERPRETIVE STATEMENTS: Atrial fibrillation with premature ventricular or aberrantly conducted complexes Rightward axis ST & T wave abnormality, consider inferior ischemia or digitalis effect Prolonged QT Abnormal ECG Compared to ECG 05/05/2015 20:48:35 Ventricular premature complex(es) now present Right-axis deviation now present ST (T wave) deviation now present Possible ischemia now present Prolonged QT interval now present Sinus rhythm no longer present Atrial premature complex(es) no longer present Myocardial infarct finding no longer present Electronically Signed On 12-07-21 09:32:02 CDT by Regis Naranjo
[2021-12-07 09:42] LABS: Thyroid Stimulating Hormone 4.33 uIU/mL (0.360-3.740)
--- NOTE | 2021-12-07 15:41 | CON ---
Date of Consultation: 12/07/2021 Reason For Consultation: New onset CVA with new onset atrial fibrillation. History Of Present Illness: Mr. Shanks is 71-year-old with history of hypertension, gout, and mario roesophageal reflux disease, came in with a stroke in the left frontal lobe, and was found to be in a trial fibrillation, rate controlled. No previous cardiac history. No previous cardiac symptoms. De nied PND, orthopnea, pedal edema, palpitations, or syncope. Neurologically speaking, he is improving . Neurological consultation is pending. Echocardiogram showed a normal ejection fraction, normal le ft atrial size, some aortic sclerosis, but no vegetation. Past Medical History: As stated above. Allergies: NONE. Review of Systems: Negative. Social History: Negative. Family History: Negative. Physical Examination: Vital Signs: Stable, afebrile and he is in atrial fibrillation at a rate of about 68. HEENT: Negative. Neck: Supple with no bruit. Chest: Clear. Cardiac: Revealed atrial fibrillation with aortic sclerosis. No murmurs, gallops, or rubs. Abdomen: Benign Extremities: Revealed no clubbing, cyanosis, or edema. Diagnostic Data: Showed a CVA in the left frontal lobe. BNP was 3718. Cholesterol of 208. Impression And Plan: 1.Cerebrovascular accident secondary to atrial fibrillation. The patient is presently on metoprolol , Eliquis, Lipitor, Plavix, and albuterol inhaler. I agree with therapy that is unremarkable. Neuro logical consultation is pending. 2.Hypertension, well controlled. 3.Gout. 4.Gastroesophageal reflux disease. I will continue his allopurinol and Plavix back down the road. Continue Norvasc. Mr. Shanks may n eed some therapy. From cardiac standpoint, he can go home on metoprolol, Eliquis, Lipitor, Plavix, w henever it is okay with Dr. Izquierdo and Neurology. NB/MODL Voice ID: [id number] Report ID: [id number]
[2021-12-07] MEDS: ATORVASTATIN 80 MG TAB PO SCH (21:09)
[2021-12-08 02:05] VITALS: O2SAT 98
[2021-12-08] MEDS: METOPROLOL TAR 25 MG TAB PO SCH (05:28)
[2021-12-08] MEDS: levoFLOXacin 750 MG TAB PO SCH (08:21)
[2021-12-08] MEDS: CLOPIDOGREL 75 MG TABLET PO SCH (08:22)
[2021-12-08] MEDS: APIXABAN 5 MG TABLET PO SCH (08:22)
[2021-12-08] MEDS: PANTOPRAZOLE 40MG TABLET PO SCH (08:23)
[2021-12-08] MEDS: allopurinoL 300 MG TAB PO SCH (08:23)
--- NOTE | 2021-12-08 09:13 | P.DS ---
Admission Date: 12/06/21 Discharge Date: 12/08/21 Disposition: ROUTINE DISCHARGE Discharge Condition: FAIR Reason for Admission: Inability to move the right arm, weakness Brief History of Present Illness: 71-year-old male past medical history of hypertension, GI bleed status post EGD finding of both gastric and duodenal ulcer in 2014 on chronic PPI, admitted now after complaining of weakness chest congestion since the last 1 week. No associated fever or chills. No sick contact. Patient was noted by son to have difficulty with moving the right above the shoulder level earlier this morning. He was also felt to have soft speech difficulty. He was brought to the emergency room in the emergency room patient was noted with mild dysarthria sdtqmc-va-qwpt test on the right side. He had a head CT done with no acute intracranial pathology or bleed. He had a CT of the head and neck done which was normal findings. 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 Patient also had an EKG showing new onset A. fib but rate controlled at 75 bpm. Son states no previous history of cardiac disease. neurology has been consulted and recommended. At the time of interview dysarthria has resolved, still mild difficulty with cxzwwe-jj-unum test but no asymmetrical weakness elicited. He has been admitted for new onset CVA as well as atrial fibrillation Hospital Course: Hospital course Patient with past medical history of GI bleed on PPI, hypertension presented because of new onset altered mental status as well as difficulty with right hand movement. On presentation he was noted with mild dysarthria of the right side which which improved. Patient was noted with cerebral infarct as well as new onset A. fib. He is TSH magnesium and phosphorus were normal. Echocardiogram was obtained with noted mild sclerosis but normal LV function and no valvular abnormalities.. He had neurology evaluation and recommended initiation of anticoagulation with Eliquis as well as Plavix. Plavix is to be continued for 1 month after which patient can continue on only Eliquis. Patient is ambulatory after evaluation with PT and OT. He will be discharged home to follow-up in clinic with cardiology. He is remained rate controlled during hospital. His blood pressure medications were adjusted. Patient was also noted with incidental UTI and treated with Levaquin Significant imaging studies CTA- Neck Angio - 12/06/2021 11:37 am CLINICAL HISTORY: Neuro deficit, acute, stroke suspected TECHNIQUE: During dynamic enhancement using nonionic IV contrast, axial 2 mm thick images of the neck were obtained. Sagittal and axial reconstruction images were generated using MIP technique and reviewed. All CT scans are performed using dose optimization technique as appropriate and may include automated exposure control or mA/KV adjustment according to patient size. COMPARISON: MRI brain same date FINDINGS: No aneurysm or vascular malformation identified. No carotid or vertebral dissection. No aortic arch or great vessel origin abnormality seen. Patient has normal variant bovine arch configuration. Vertebral artery origins unremarkable as well. No stenosis, vasculitis or other significant carotid artery finding. No focal abnormality of either vertebral artery. Basilar artery is normal. IMPRESSION: Negative CT angio neck examination for acute or significant finding. MRI brain No globe or orbital content abnormality seen. No sella or supra sella abnormality. 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 Scattered acute/subacute nonhemorrhagic infarction foci in the left parietal white matter from subcortical to periventricular in location. Chest Single View - 12/06/2021 10:40 am CLINICAL HISTORY: weakness COMPARISON: None available TECHNIQUE: AP portable chest image was obtained 12/06/2021 10:40 am . FINDINGS: Lungs are clear. Hilar regions within normal limits. Heart and vasculature are normal. No measurable pleural effusion and no pneumothorax. No acute bony abnormality seen. No acute aortic findings suspected. IMPRESSION: No acute cardiopulmonary process. Physical examination Generalelderly male, average build, calm, not in any distress, on room air HEENTPERLA, extraocular motor movement intact Neckno JVD, no carotid bruit Respiratorygood air entry bilaterally no crepitations CardiovascularS1-S2 irregular but rate controlled, no murmur GIfull soft bowel sounds positive no organomegaly Extremitiesno pedal edema, no calf tenderness Neuroalert, oriented, conversant x3 No pronator drift, Vital Signs/Physical Exam: Temp Pulse Resp BP Pulse Ox 97.6 F 87 16 144/93 H 99 12/08/21 08:00 12/08/21 08:00 12/08/21 08:00 12/08/21 08:00 12/08/21 08:00 Laboratory Data at Discharge: WBC 5.2 K/uL (4.3-10.9) D 12/07/21 05:50 Hgb 14.9 g/dL (13.6-17.9) 12/07/21 05:50 Hct 43.9 % (39.6-49.0) 12/07/21 05:50 Plt Count 251 K/uL (152-406) 12/07/21 05:50 PT 13.1 SECONDS (9.5-12.5) H 12/06/21 10:03 INR 1.19 12/06/21 10:03 Sodium 136 mmol/L (136-145) 12/07/21 05:50 Potassium 3.5 mmol/L (3.5-5.1) 12/07/21 05:50 BUN 11 mg/dL (7-18) 12/07/21 05:50 Creatinine 0.99 mg/dL (0.55-1.3) 12/07/21 05:50 Glucose 112 mg/dL (74-106) H 12/07/21 05:50 Magnesium 2.3 mg/dL (1.8-2.4) 12/06/21 22:31 Total Bilirubin 0.6 mg/dL (0.2-1.0) 12/07/21 05:50 AST 22 U/L (15-37) 12/07/21 05:50 ALT 27 U/L (12-78) 12/07/21 05:50 Alkaline Phosphatase 93 U/L (45-117) 12/07/21 05:50 Triglycerides 116 mg/dL (<150) 12/06/21 10:03 Cholesterol 208 mg/dL (<200) H 12/06/21 10:03 HDL Cholesterol 54 mg/dL (40-60) 12/06/21 10:03 Cholesterol/HDL Ratio 3.85 12/06/21 10:03 Home Medications: Allopurinol 300 mg PO DAILY 12/06/21 Omeprazole [Prilosec] 40 mg PO DAILY 12/06/21 Apixaban [Eliquis] 5 mg PO BID #60 tablet 12/08/21 Atorvastatin Calcium [Lipitor] 80 mg PO BEDTIME #30 tab 12/08/21 Clopidogrel Bisulfate [Plavix*] 75 mg PO DAILY #30 tablet 12/08/21 Metoprolol Tartrate [Lopressor*] 12.5 mg PO BID 6AM 6PM #30 tab 12/08/21 Pantoprazole [Protonix Tab*] 40 mg PO BIDAC #60 tab 12/08/21 levoFLOXacin [Levaquin*] 750 mg PO DAILY #5 tab 12/08/21 New Medications: Apixaban [Eliquis] 5 mg PO BID #60 tablet levoFLOXacin [Levaquin*] 750 mg PO DAILY #5 tab Atorvastatin Calcium [Lipitor] 80 mg PO BEDTIME #30 tab Metoprolol Tartrate [Lopressor*] 12.5 mg PO BID 6AM 6PM #30 tab Clopidogrel Bisulfate [Plavix*] 75 mg PO DAILY #30 tablet Pantoprazole [Protonix Tab*] 40 mg PO BIDAC #60 tab Followup: Regis Naranjo MD [ACTIVE - CAN ADMIT] - Byron Guillermo MD [ASSOCIATE-ACTIVE - CAN ADMIT] - Elif GUERRA,Petra Conn DO [Primary Care Provider] -
[2021-12-08 12:20] VITALS: BP 124/69; TEMP 97.9
--- NOTE | 2021-12-08 13:21 | ECHO ---
HEIGHT: 5 ft 11 in WEIGHT: 213 lb 0.17 oz DATE OF STUDY: 12/07/[address]: Saqib Izquierdo MD 2-DIMENSIONAL: YES M.MODE: YES DOPPLER: YES COLOR FLOW: YES TDS: NO PORTABLE: YES DEFINITY: NO BUBBLE STUDY: NO DIAGNOSIS: ATRIAL FIBRILLATION CARDIAC HISTORY: CATHERIZATION: SURGERY: PROSTHETIC VALVE: PACEMAKER: MEASUREMENTS (cm) DIASTOLIC (NORMALS) SYSTOLIC (NORMALS) IVSd 1.2 (0.6-1.2) LA Diam 5.0 (1.9-4.0) LVEF 56% LVIDd 4.4 (3.5-5.7) LVIDs 3.1 (2.0-3.5) %FS 29% LVPWd 1.3 (0.6-1.2) Ao Diam 2.7 (2.0-3.7) 2 DIMENSIONAL ASSESSMENT: RIGHT ATRIUM: NORMAL LEFT ATRIUM: DILATED RIGHT VENTRICLE: NORMAL LEFT VENTRICLE: NORMAL TRICUSPID VALVE: NORMAL MITRAL VALVE: NORMAL PULMONIC VALVE: NORMAL AORTIC VALVE: NORMAL PERICARDIAL EFFUSION: NONE AORTIC ROOT: NORMAL LEFT VENTRICULAR WALL MOTION: NORMAL DOPPLER/COLOR FLOW: NORMAL COMMENTS: LEFT ATRIAL ENLAREGEMENT. NO THROMBUS. NORMAL LEFT VENTRICULAR SIZE AND FUNCTION. NO WALL MOTION ABNORMALITY. TECHNOLOGIST: Mariely LIEBERMAN
--- NOTE | 2021-12-08 15:03 | CON ---
Consultation called because of stroke. History Of Present Illness: Mr. Shanks is a 71-year-old right-handed patient with hypertension, recent GI bleed, remote duodenal ulcers, and now improving right-sided weakness. The weakness and difficulty with expression began approximately a week prior to his admission. He has a CT scan at [facility], showed no acute ischemic or hemorrhagic findings. He has a cervical spine CT scan, which was unremarkable. His brain MRI, however, showed a 10 mm left parietal periventricular insular region subacute ischemic stroke. The patient's evaluation by EKG identified new-onset atrial fibrillation. The patient was treated with combination of Eliquis and Plavix along with Lipitor 80 mg at bedtime. His urinalysis was positive for urinary tract infection including positive nitrite, positive esterase, 20-50 white blood cells, greater than 50 bacteria, however, his cultures still pending. He did receive Levaquin 750 mg daily. The patient did ambulate with physical therapy independently around 750 feet and he says his right-sided weakness is improving significantly. Speech is more clear. Past Medical History: As noted including gout. Allergies: NO KNOWN DRUG ALLERGIES. Home Medications: Norvasc 10 mg daily, Lopressor 50 mg twice daily, Protonix 40 mg twice daily, Librium 10 mg 3 times daily, colchicine 0.6 mg daily, and allopurinol 100 mg daily. Family History: Heart disease in mother. GI disease in father. Social History: The patient smoked in the past. Alcohol use occasionally and caffeinated beverages. Review of Systems: Aside from mentioned above, he denies any recent fevers or chills, nausea, vomiting, myalgias, arthralgias, rash, headache, or weight change. No psychiatric issues. Physical Examination: Vital Signs: Blood pressure 133/67 up to 142/81, respiratory rate 16 to 20, temperature 97, pulse rate 67 to 81, and oxygen saturation 95% on room air. Weight 213 pounds. Height is 5 feet 11 inches. BMI 29. General: Mr. Shanks is sitting at side of bed. He is in no acute distress. HEENT: He appears normocephalic, atraumatic. Sclerae are anicteric. Oropharynx is moist and pink. Neck: Supple. Chest: Clear. Heart: Regular. Extremities: Show no edema or cyanosis. Neuro: His cranial nerves show no obvious focal deficits at this point, perhaps a subtle decrease in the right nasolabial fold with good excursions on smiling. The patient's sensation subtle decreased touch to right versus left face. He has motor examination, very subtle weakness in the right upper and lower extremities, decreased sensation to light touch in the right upper and lower extremities, intact on the left. Coordination intact in upper and lower extremities. Gait, good stance and arm swing. Assessment: Mr. Shanks is a 71-year-old patient with a left parietal stroke related to hypertension and atrial fibrillation. He is on Eliquis and Plavix. Plan: 1. Continue Eliquis and Plavix. 2. He may benefit from outpatient physical therapy since he is doing very well so far with his recovery. 3. Continue high-dose statins and folic acid. 4. Follow up with Dr. Guillermo's clinic in 1 month after discharge. ZENIA/HEATHER Voice ID: [id number] Report ID: [id number] FLAVIO
--- NOTE | 2021-12-09 | PN ---
Date of Progress Note: 12/08/2021 Mr. Shanks was seen because of stroke, new onset atrial fibrillation. He has a history of hyperten demetra, gout, and gastroesophageal reflux disease. He came in with a left frontal lobe CVA and recomme nded metoprolol, Eliquis, Lipitor, and Plavix. Neurological consultation. Echocardiogram was unrema rkable with normal left atrial size. No thrombus. His atrial fibrillation rate is controlled. I th ink we need to just stick with metoprolol and Eliquis. Obtain physical therapy as an outpatient. I will see him in the office down the road. We will eventually do an outpatient Lexiscan on him and se e him in the office and follow him as an outpatient on a regular basis. He can go home whenever it i s okay with Dr. Izquierdo. HERMELINDA/HEATHER Voice ID: [id number] Report ID: [id number]
--- NOTE | 2021-12-11 00:43 | CON ---
Consultation called because of stroke. History Of Present Illness: Mr. Shanks is a 71-year-old right-handed patient with hypert ension, recent GI bleed, remote duodenal ulcers, and now improving right-sided weakness. The weaknes s and difficulty with expression began approximately a week prior to his admission. He has a CT scan at [facility], showed no acute ischemic or hemorrhagic findings. He has a cervical spine C T scan, which was unremarkable. His brain MRI, however, showed a 10 mm left parietal periventricular insular region subacute ischemic stroke. The patient's evaluation by EKG identified new-onset atria l fibrillation. The patient was treated with combination of Eliquis and Plavix along with Lipitor 80 mg at bedtime. His urinalysis was positive for urinary tract infection including positive nitrite, positive esterase, 250 white blood cells, greater than 50 bacteria; however, his cultures still pendi ng. He did receive Levaquin 750 mg daily. The patient did ambulate with physical therapy independently around 750 feet and he says his right-si ded weakness is improving significantly. Speech is more clear. Past Medical History: As noted including gout. Allergies: NO KNOWN DRUG ALLERGIES. Home Medications: Norvasc 10 mg daily, Lopressor 50 mg twice daily, Protonix 40 mg twice daily, Libr ium 10 mg 3 times daily, colchicine 0.6 mg daily, and allopurinol 100 mg daily. Family History: Heart disease in mother. GI disease in father. Social History: The patient smoked in the past. Alcohol use occasionally and caffeinated beverages. Review of Systems: Aside from mentioned above, he denies any recent fevers or chills, nausea, vomiting, myalgias, arthra lgias, rash, headache, or weight change. No psychiatric issues. Physical Examination: Vital Signs: Blood pressure 133/67 up to 142/81, respiratory rate 16 to 20, temperature 97, pulse ra te 67 to 81, and oxygen saturation 95% on room air. Weight 213 pounds. Height is 5 feet 11 inches. BMI 29. General: Mr. Shanks is sitting at side of bed. He is in no acute distress. HEENT: He appears normocephalic, atraumatic. Sclerae are anicteric. Oropharynx is moist and pink. Neck: Supple. Chest: Clear. Heart: Regular. Extremities: Show no edema or cyanosis. Neuro: His cranial nerves show no obvious focal deficits at this point, perhaps a subtle decrease in the right nasolabial fold with good excursions on smiling. The patient's sensation subtle decreased touch to right versus left face. He has motor examination, very subtle weakness in the right upper and lower extremities, 5 minus out of 5; in the left, 5/5. Sensation, slightly decreased to light to uch and temperature in the right upper and lower extremities, intact on the left. Coordination intac t in upper and lower extremities. Gait, good stance, right arm swing. Assessment: Mr. Shanks is a 71-year-old patient with a left parietal stroke, perhaps related to hy pertension, and atrial fibrillation. He is on Eliquis and Plavix. Plan: 1.Continue Eliquis and Plavix. 2.He may benefit from outpatient physical therapy since he is doing very well so far with his recove ry. Continue high-dose statins and folic acid. 3.Follow up with Dr. Guillermo's clinic in 1 month after discharge. ZNEIA/HEATHER Voice ID: [id number] Report ID: [id number]
== END 2021-12-08 15:37 | disposition home or self-care (01) | DRG 65 ==
LOC: ER 09:23 → ERHOLD 13:21 → 2ND 17:12
PROVIDERS: ADMIT Internal Medicine; ATTEND Internal Medicine
DX: I63.9 Cerebral infarction, unspecified (principal); G81.91 Hemiplegia, unspecified affecting right dominant side; N39.0 Urinary tract infection, site not specified; I48.91 Unspecified atrial fibrillation; R47.1 Dysarthria and anarthria; I10 Essential (primary) hypertension; R29.707 NIHSS score 7; M10.9 Gout, unspecified; Z20.822 Contact with and (suspected) exposure to COVID-19
CPT/HCPCS: 0240U; 36415; 70450; 70496; 70498; 70551; 71045; 80048; 80053; 80061; 80076; 81003; 81015; 82550; 82553; 82947; 83605; 83735; 83880; 84145; 84439; 84443; 84484; 85025; 85610; 87040; 87077; 87086; 87088; 87186; 92523; 93005; 93306; 96365; 97112; 97161; 97165; 99285; J7030; J7050; Q9967

== ENCOUNTER 2022-10-09 09:47 | Inpatient (IN) | payer OTHER ==
[2022-10-09] MEDS ORDERED: ONDANSETRON 4 MG/2 ML VIAL ONE (10:11)
[2022-10-09] MEDS ORDERED: NA CHLORIDE 0.9% 500 ML ONE (10:11)
[2022-10-09 10:34] LABS: Absolute Lymphocytes (CBC) 0.9 K/uL (0.7-4.9)
[2022-10-09 10:49] LABS: Albumin 3.5 g/dL (3.4-5.0); Bilirubin Total 1.3 mg/dL (0.2-1.0); Potassium 3.1 mmol/L (3.5-5.1); Protein, Total 7.9 g/dL (6.4-8.2)
[2022-10-09 11:02] LABS: SARS-COV-2 RT PCR NEGATIVE (NEGATIVE)
--- NOTE | 2022-10-09 11:04 | RAD REPORT ---
EXAM DESCRIPTION: Areli Single View10/09/2022 10:54 am CLINICAL HISTORY: weakness COMPARISON: <Comparisons> TECHNIQUE: Portable AP view of the chest. FINDINGS: The lungs are clear. Left mild basilar atelectasis. No pneumothorax or effusion. The cardi omediastinal contours are unremarkable. IMPRESSION: No acute cardiopulmonary process.
[2022-10-09 11:05] LABS: Hematocrit 35.6 % (39.6-49.0); Lymphocytes % 9.3 % (15.3-44.8); MCV 90.6 fL (80-100); MPV 7.3 fL (7.6-11.3); RBC Red Blood Cell Count 3.93 M/uL (4.33-5.43)
[2022-10-09 11:41] LABS: White Blood Cell Scan OK (OK)
[2022-10-09 11:42] LABS: Anisocytosis SLIGHT; Blood Morphology Comment NOTED (NOT SEEN); Macrocytosis SLIGHT; Platelet Estimate ADEQ
--- NOTE | 2022-10-09 11:44 | RAD REPORT ---
EXAM DESCRIPTION: CT - Abdomen Pelvis W Contrast - 10/09/2022 11:27 am CLINICAL HISTORY: Abdominal pain Diagnosed with upper respiratory infection recently. Decreased appetite. Nausea, vomiting, diarrhea, weakness COMPARISON: 05/05/2015 TECHNIQUE: Biphasic, helical CT imaging of the abdomen and pelvis was performed following intravenou s administration of 95 mL Isovue-300. Multiplanar reformats were generated and reviewed All CT scans are performed using dose optimization technique as appropriate and may include automated exposure control or mA/KV adjustment according to patient size. FINDINGS: No suspicious findings in the lung bases. The liver, spleen, and pancreas show no suspicious findings. Gallbladder and biliary tree are also wi thout suspicious finding. Symmetric renal function is seen with no hydronephrosis or suspicious renal mass. No dilated bowel loops or bowel wall thickening. Diverticulosis noted along the descending and sigmoi d colon. No evidence of acute diverticulitis. No free air, free fluid or inflammatory stranding. No h ernia, mass or bulky lymphadenopathy. Prostatomegaly. The urinary bladder is without significant find ing. No suspicious bony findings. IMPRESSION: No acute abnormalities in the abdomen and pelvis. Incidental findings as above.
--- NOTE | 2022-10-09 11:49 | ER ---
Nurse's Notes [facility] Name: Gary Shanks Age: 72 yrs Sex: Male : 1950 Arrival Date: 10/09/2022 Time: 09:51 Bed 2 Private MD: Diagnosis: Hypo-osmolality and hyponatremia;Muscle weakness (generalized);Nausea with vomiting, unspecified;Diarrhea, unspecified Presentation: 10/09 09:53 Chief complaint: Pt's son states "he went to urgent care on Monday and was diagnosed aa5 with an upper respiratory infection but he hasn't been eating well since over the weekend". Pt reports nausea/vomiting/diarrhea and generalized weakness. 09:53 Coronavirus screen: diarrhea, vomiting. aa5 09:53 Acuity: DANY 3 aa5 09:53 Method Of Arrival: Ambulatory aa5 09:53 Risk Assessment: Do you want to hurt yourself or someone else? Patient reports no aa5 desire to harm self or others. 09:53 Ebola Screen: Patient denies travel to an Ebola-affected area in the 21 days before aa5 illness onset. Initial Sepsis Screen: Does the patient meet any 2 criteria? No. Patient's initial sepsis screen is negative. Does the patient have a suspected source of infection? No. Patient's initial sepsis screen is negative. 10:27 Onset of symptoms was October 09, 2022. ph Historical: - Allergies: 09:56 No Known Allergies; ph - PMHx: 09:56 Hypertensive disorder; Cerebrovascular accident; ph - Immunization history:: Adult Immunizations unknown. - Social history:: Smoking status: unknown. - Family history:: not pertinent. - Hospitalizations: : No recent hospitalization is reported. Screenin:57 [facility] ED Fall Risk Assessment (Adult) History of falling in the last 3 months, ph including since admission No falls in past 3 months (0 pts) Confusion or Disorientation No (0 pts) Intoxicated or Sedated No (0 pts) Impaired Gait No (0 pts) Mobility Assist Device Used No (0 pt) Altered Elimination No (0 pt) Score/Fall Risk Level 0 - 2 = Low Risk Oriented to surroundings, Maintained a safe environment, Hourly rounding (assess needs \\T\\ fall precautionary measures) done. Abuse screen: Denies threats or abuse. Denies injuries from another. Nutritional screening: No deficits noted. Tuberculosis screening: No symptoms or risk factors identified. Assessment: 10:24 General: Appears in no apparent distress. comfortable, well groomed, Behavior is calm, ph cooperative, appropriate for age, Reports fatigue for >3 days, Denies fever, chills. Pain: Denies pain. Neuro: Level of Consciousness is awake, alert, obeys commands, Oriented to person, place, time, situation, Reports weakness , generalized. Cardiovascular: Capillary refill < 3 seconds in bilateral fingers Patient's skin is warm and dry. Respiratory: Airway is patent Respiratory effort is even, unlabored, Respiratory pattern is regular, symmetrical. GI: Reports diarrhea, nausea, vomiting, Patient currently denies abdominal pain. Derm: Skin is pink, warm \\T\\ dry. 11:38 Reassessment: Pt returned from CT. jl7 12:39 Reassessment: Patient appears in no apparent distress at this time. Patient and/or ph family updated on plan of care and expected duration. Pain level reassessed. Patient is alert, oriented x 3, equal unlabored respirations, skin warm/dry/pink. 12:49 Reassessment: Hospitalist Dr. Trujillo at bedside. jl7 Vital Signs: 09:53 BP 165 / 90; Pulse 77; Resp 16 S; Temp 98.2(O); Pulse Ox 98% ; aa5 10:27 BP 140 / 84; Pulse 73; Resp 18; Pulse Ox 98% on R/A; ph 11:43 BP 151 / 91; Pulse 73; Resp 15; Pulse Ox 98% ; jl7 12:39 BP 128 / 80; Pulse 76; Resp 16; Pulse Ox 100% ; ph 14:01 BP 149 / 72; Pulse 70; Resp 15; Pulse Ox 100% ; jl7 ED Course: 09:51 Patient arrived in ED. rg4 09:52 Philip Kay MD is Attending Physician. rn 09:56 Komal Weiss, COLIN is Primary Nurse. ph 09:58 Arm band placed on right wrist. Patient placed in an exam room, on a stretcher, on ph vehicle monitor technician, on pulse oximetry. 10:02 Triage completed. aa5 10:20 Initial lab(s) drawn, by ED staff, sent to lab. Inserted saline lock: 20 gauge in right ph antecubital area, using aseptic technique. Blood collected. 10:24 COVID-19/FLU A+B Sent. ph 10:24 CBC with Diff Sent. ph 10:24 CMP Sent. ph 10:24 Lipase Sent. ph 10:26 Patient has correct armband on for positive identification. Placed in gown. Bed in low ph position. Call light in reach. Side rails up X 1. Client placed on continuous cardiac and pulse oximetry monitoring. NIBP monitoring applied. Door closed. Noise minimized. 11:48 Elvin Trujillo is Hospitalizing Provider. rn 12:39 No provider procedures requiring assistance completed. Patient admitted, IV remains in ph place. Administered Medications: 10:24 Drug: Zofran (Ondansetron) 4 mg Route: IVP; Site: right antecubital; ph 12:40 Follow up: Response: No adverse reaction ph 10:24 Drug: NS 0.9% 500 ml Route: IV; Rate: bolus; Site: right antecubital; ph 12:40 Follow up: Response: No adverse reaction; IV Status: Completed infusion; IV Intake: ph 500ml Medication: 10:26 VIS not applicable for this client. ph Intake: 12:40 IV: 500ml; Total: 500ml. ph Outcome: 11:49 Decision to Hospitalize by Provider. rn 14:01 Admitted to Med/surg accompanied by tech, family with patient, via wheelchair, room jl7 231, with chart, Report called to COLIN Hart 14:01 Condition: stable 14:01 Discharge instructions given to patient, Instructed on the need for admit, Demonstrated understanding of instructions. 14:22 Patient left the ED. jl7 Signatures: Philip Kay MD MD rn Calderon, Audri RN RN [id number] Komal Weiss RN RN ph Garcia, Rubi rg4 Lisa Huertas RN RN jl7 Corrections: (The following items were deleted from the chart) 10:03 09:53 Chief complaint: Pt's son states "he went to urgent care on Monday and was aa5 diagnosed with an upper respiratory infection but he hasn't been eating well since over the weekend". Pt reports nausea/vomiting/diarrhea. aa5 10:27 10:24 GI: Reports nausea, Patient currently denies abdominal pain, diarrhea, vomiting, ph ph
--- NOTE | 2022-10-09 11:49 | EDPHYS ---
Physician Documentation [facility] Name: Gary Shanks Age: 72 yrs Sex: Male : 1950 Arrival Date: 10/09/2022 Time: 09:51 Bed 2 Private MD: ED Physician Philip Kay HPI: 10/09 11:20 This 72 yrs old Male presents to ER via Ambulatory with complaints of Weakness.rn 11:20 Pt reports is getting over "upper respiratory infection", had cough and congestion last rn week, now this week has not had appetite, not eating or drinking anything, no fever. + non-bloody diarrhea. + nausea. No abd pain. . Onset: The symptoms/episode began/occurred 1 week(s) ago. Severity of symptoms: At their worst the symptoms were moderate in the emergency department the symptoms are unchanged. The patient has not experienced similar symptoms in the past. The patient has not recently seen a physician. Historical: - Allergies: 09:56 No Known Allergies; ph - PMHx: 09:56 Hypertensive disorder; Cerebrovascular accident; ph - Immunization history:: Adult Immunizations unknown. - Social history:: Smoking status: unknown. - Family history:: not pertinent. - Hospitalizations: : No recent hospitalization is reported. ROS: 11:20 Constitutional: Negative for fever, weight loss Eyes: Negative for injury, pain, rn redness, and discharge, Cardiovascular: Negative for chest pain, palpitations, and edema, Respiratory: Negative for shortness of breath, cough, wheezing, and pleuritic chest pain, Abdomen/GI: + nausea/diarrhea, negative for blood in stool MS/Extremity: Negative for injury and deformity, Skin: Negative for injury, rash, and discoloration, Neuro: Negative for headache, numbness, tingling, and seizure. Exam: 11:13 ECG was reviewed by the Attending Physician. rn 11:20 Constitutional: This is a well developed, well nourished patient who is awake, alert, rn and in no acute distress. Head/Face: Normocephalic, atraumatic. ENT: dry MM, no stridor Cardiovascular: Irregular rhythm, regular rate Respiratory: No increased work of breathing, no retractions or nasal flaring. Abdomen/GI: soft, non-tender, non-distended Skin: Warm, dry MS/ Extremity: Pulses equal, no cyanosis. Neuro: Awake and alert, GCS 15 Vital Signs: 09:53 BP 165 / 90; Pulse 77; Resp 16 S; Temp 98.2(O); Pulse Ox 98% ; aa5 10:27 BP 140 / 84; Pulse 73; Resp 18; Pulse Ox 98% on R/A; ph 11:43 BP 151 / 91; Pulse 73; Resp 15; Pulse Ox 98% ; jl7 12:39 BP 128 / 80; Pulse 76; Resp 16; Pulse Ox 100% ; ph 14:01 BP 149 / 72; Pulse 70; Resp 15; Pulse Ox 100% ; jl7 MDM: 09:52 Patient medically screened. rn 11:34 Differential Diagnosis COVID, flu, electrolyte problem, kidney injury, dehydration, rn hyponatremia, colitis, enteritis, viral syndrome. Data reviewed: vital signs, nurses notes, lab test result(s), radiologic studies, CT scan, and as a result, I will admit patient. Consideration of Admission/Observation Patient was admitted/placed on observation. Escalation of care including admission/observation considered. I considered the following discharge prescriptions or medication management in the emergency department Medications were administered in the Emergency Department. See MAR. Independent interpretation of the following test(s) in the Emergency Department EKG: See my EKG interpretation above X-Ray: My interpretation is Chest xray images neg for pneumonia/pneumothorax per my interpretation.. 11:47 Management of patient was discussed with the following: Hospitalist: Case and rn management discussed with Dr. Trujillo. . Historians other than the Patient: Daughter/Son: Some of history obtained from son. Care significantly affected by the following chronic conditions: Hypertension, CVA. Counseling: I had a detailed discussion with the patient and/or guardian regarding: the historical points, exam findings, and any diagnostic results supporting the discharge/admit diagnosis, lab results, radiology results, the need for further work-up and treatment in the hospital. Response to treatment: the patient's symptoms have mildly improved after treatment, and as a result, I will admit patient. 10/09 10:02 Order name: CBC with Diff rn 10/09 10:02 Order name: CMP rn 10/09 10:02 Order name: Lipase rn 10/09 10:02 Order name: COVID-19/FLU A+B rn 10/09 10:51 Order name: Comprehensive Metabolic Panel; Complete Time: 10:51 EDMS 10/09 10:51 Order name: Lipase; Complete Time: 10:51 EDMS 10/09 10:02 Order name: CT Abd/Pelvis - IV Contrast Only rn 10/09 10:02 Order name: XRAY Chest (1 view) rn 10/09 11:02 Order name: COVID-19/FLU A+B; Complete Time: 11:20 EDMS 10/09 11:05 Order name: RAD; Complete Time: 11:20 EDWY 10/09 11:07 Order name: CBC with Automated Diff; Complete Time: 12:13 EDMS 10/09 11:42 Order name: CBC Smear Scan; Complete Time: 12:13 EDWY 10/09 11:44 Order name: CT; Complete Time: 12:13 EDWY 10/09 10:02 Order name: IV Saline Lock; Complete Time: 10:24 rn 10/09 10:02 Order name: Labs collected and sent; Complete Time: 10:24 rn 10/09 10:03 Order name: EKG; Complete Time: 10:03 rn 10/09 10:03 Order name: EKG - Nurse/Tech; Complete Time: 10:24 rn EC:13 Rate is 74 beats/min. Rhythm is irregularly irregular. QRS [place] is Normal. QRS interval rn is normal. QT interval is normal. No Q waves. T waves are Inverted in leads V1, V2, V3. No ST changes noted. Clinical impression: Atrial Fibrillation. Interpreted by me. Reviewed by me. Administered Medications: 10:24 Drug: Zofran (Ondansetron) 4 mg Route: IVP; Site: right antecubital; ph 12:40 Follow up: Response: No adverse reaction ph 10:24 Drug: NS 0.9% 500 ml Route: IV; Rate: bolus; Site: right antecubital; ph 12:40 Follow up: Response: No adverse reaction; IV Status: Completed infusion; IV Intake: ph 500ml Disposition Summary: 10/09/22 11:49 Hospitalization Ordered Hospitalization Status: Inpatient Admission rn Provider: Elvin Trujillo rn Location: Telemetry/MedSurg (Inpatient) rn Condition: Stable rn Problem: new rn Symptoms: have improved rn Bed/Room Type: Standard rn Room Assignment: 231(10/09/22 13:52) dw Diagnosis - Hypo-osmolality and hyponatremia rn - Muscle weakness (generalized) rn - Nausea with vomiting, unspecified rn - Diarrhea, unspecified rn Forms: - Medication Reconciliation Form rn - SBAR form rn Signatures: Dispatcher [employer] Felecia Bustillos RN RN Philip Anaya MD MD rn Hall, Patricia, RN RN ph Corrections: (The following items were deleted from the chart) 13:52 11:49 rn lauren
--- NOTE | 2022-10-09 13:57 | P.HP ---
Certification for Inpatient Patient admitted to: Inpatient With expected LOS: >2 Midnights Practitioner: I am a practitioner with admitting privileges, knowledge of patient current condition, hospital course, and medical plan of care. Services: Services provided to patient in accordance with Admission requirements found in Title 42 Section 412.3 of the Code of Federal Regulations Patient History Date of Service: 10/09/22 Reason for admission: Generalized weakness History of Present Illness: 72-year-old gentleman with a history of gastric ulcer, hypertension, atrial fibrillation and stroke was brought to the emergency department due to generalized weakness. Symptoms preceded by 1 week of upper respiratory symptoms of nonproductive cough, sneezing, loss of appetite. He went to urgent care clinic 4 days ago, tested negative for COVID-19. Upper respiratory symptoms followed by generalized weakness. Patient attributed her weakness to decreased oral intake. He denies any vomiting or diarrhea. He denied recent fever. He tested negative for COVID 19 and influenza here in the ED. blood work showed severe hyponatremia with a sodium of 110, hypochloremia and hypokalemia. CT abdomen and pelvis done in the ED is unremarkable, shows no acute disease. Chest x-ray shows no acute cardiopulmonary disease. Noted he is on hydrochlorothiazide for hypertension which could be contributing to the hyponatremia. Patient is hospitalized for further management. Allergies No Known Allergies Allergy (Verified 05/06/15 00:31) Home Medications: Allopurinol 300 mg PO DAILY 12/06/21 Atorvastatin Calcium [Lipitor] 80 mg PO BEDTIME #30 tab 12/08/21 Clopidogrel Bisulfate [Plavix*] 75 mg PO DAILY #30 tablet 12/08/21 Metoprolol Tartrate [Lopressor*] 12.5 mg PO BID 6AM 6PM #30 tab 12/08/21 Pantoprazole [Protonix Tab*] 40 mg PO BIDAC #60 tab 12/08/21 Rivaroxaban [Xarelto] 20 mg PO DAILY #30 tablet 12/08/21 levoFLOXacin [Levaquin*] 750 mg PO DAILY #5 tab 12/08/21 - Past Medical/Surgical History Diabetic: No -: Hypertension -: GI bleed -: Gastric or duodenal ulcer -: Chronic atrial fibrillation -: Status post EGD in 2014 - Family History Mother -: Heart disease Father -: GI disease - Social History Smoking Status: Never smoker Alcohol use: Yes CD- Drugs: No Caffeine use: Yes Review of Systems Other: Except as documented, all other systems reviewed and negative. Physical Examination - Physical Exam General: Alert, In no apparent distress, Oriented x3, Obese HEENT: PERRLA, Mucous membr. moist/pink, EOMI, Sclerae nonicteric Neck: Supple, JVD not distended Respiratory: Clear to auscultation bilaterally, Normal air movement Cardiovascular: No edema, Normal S1 S2, Irregular heart rate/rhythm Capillary refill: <2 Seconds Gastrointestinal: Normal bowel sounds, Soft and benign, Non-distended, No tenderness Musculoskeletal: No swelling, No tenderness Integumentary: No rashes, No cyanosis Neurological: Normal strength at 5/5 x4 extr, Cranial nerves 3-12 intact Lymphatics: No axilla or inguinal lymphadenopathy - Studies Laboratory Data (last 24 hrs) 10/09/22 10:19: Sodium 110 L*, Potassium 3.1 L, BUN 9, Creatinine 1.01, Glucose 150 H, Total Bilirubin 1.3 H, AST 27, ALT 20, Alkaline Phosphatase 108, Lipase 45 10/09/22 10:19: WBC 10.20, Hgb 13.2 L, Hct 35.6 L, Plt Count 309 Assessment and Plan - Problems (Diagnosis) (1) Hyponatremia Current Visit: Yes Status: Acute (2) Upper respiratory symptom Current Visit: Yes Status: Acute (3) Generalized weakness Current Visit: Yes Status: Acute (4) Hypertension Current Visit: Yes Status: Acute (5) History of CVA (cerebrovascular accident) Current Visit: Yes Status: Acute - Plan Admit patient to the medical floor. Differential diagnosis for hyponatremia: SIADH versus dehydration. Start IV normal saline Monitor BMP every 4 hours Check serum osmolality, urine osmolality and urine sodium. Check TSH, free T4, a.m. cortisol level. Nephrology consult. Hold hydrochlorothiazide. Continue home medications for atrial fibrillation and stroke. Continue Xarelto. - Advance Directives Does patient have a Living Will: No Does patient have a Durable POA for Healthcare: No
[2022-10-09] MEDS ORDERED: NA CHLORIDE 0.9% 1,000 ML IV SCH (14:07)
[2022-10-09] MEDS ORDERED: ACETAMINOPHEN 500 MG TAB PO PRN (14:07)
[2022-10-09] MEDS ORDERED: ONDANSETRON 4 MG/2 ML VIAL IV PRN (14:07)
[2022-10-09] MEDS: ENOXAPARIN 40 MG/0.4 ML SQ SCH (14:40)
[2022-10-09 14:43] LABS: Protime INR 1.66
[2022-10-09 14:52] LABS: Potassium 3.1 mmol/L (3.5-5.1)
[2022-10-09 15:02] VITALS: BMI 30.4
[2022-10-09] MEDS ORDERED: POTASSIUM CL SA 10 MEQ TAB PO ONE (15:06)
[2022-10-09 18:40] LABS: Specific Gravity 1.025 (1.005-1.030); Urine Bilirubin NEGATIVE (Negative); Urine Blood Negative (Negative); Urine Clarity Clear (Clear); Urine Color Light-Yellow (Yellow); Urine Glucose NEGATIVE (Negative); Urine Protein NEGATIVE (Negative); Urine Urobilinogen Normal (Normal); Urine pH 7.5 (5.0-7.0)
[2022-10-09 18:59] LABS: Potassium 3.4 mmol/L (3.5-5.1)
[2022-10-09] MEDS: NA CHLORIDE 0.9% 1,000 ML IV SCH ×2 (19:28→22:44)
[2022-10-09 22:30] LABS: Potassium 3.4 mmol/L (3.5-5.1)
[2022-10-10 03:21] LABS: Potassium 3.5 mmol/L (3.5-5.1)
[2022-10-10 06:37] LABS: Absolute Lymphocytes (CBC) 1.4 K/uL (0.7-4.9); Hematocrit 33.2 % (39.6-49.0); Lymphocytes % 19.9 % (15.3-44.8); MCV 91.6 fL (80-100); MPV 7.1 fL (7.6-11.3); RBC Red Blood Cell Count 3.62 M/uL (4.33-5.43)
[2022-10-10 06:48] LABS: Potassium 3.3 mmol/L (3.5-5.1)
[2022-10-10 06:57] LABS: Magnesium 2.1 mg/dL (1.6-2.4); Phosphorus 1.6 mg/dL (2.5-4.9); Thyroid Stimulating Hormone 1.54 uIU/mL (0.358-3.740)
[2022-10-10] MEDS: ENOXAPARIN 40 MG/0.4 ML SQ SCH (08:55)
[2022-10-10] MEDS ORDERED: D5W 1,000 ML IV SCH ×6 (09:00→20:00)
[2022-10-10] MEDS ORDERED: POTASSIUM PHOS IN 0.9 % NACL 15 MMOL/250 ML BAG IV ONE (09:00)
[2022-10-10 10:51] LABS: Potassium 3.8 mmol/L (3.5-5.1)
--- NOTE | 2022-10-10 13:45 | P.PN ---
Subjective Date of Service: 10/10/22 Chief Complaint: Generalized weakness Patient denies any complaint today. He states he feels stronger today. He has been ambulatory without assistive device. Physical Examination - Vital Signs Temperature: 98.1 F Blood Pressure: 145/76 Pulse: 60 Respirations: 14 Pulse Ox (%): 96 Assessment And Plan - Current Problems (Diagnosis) (1) Hyponatremia Current Visit: Yes Status: Acute (2) Upper respiratory symptom Current Visit: Yes Status: Acute (3) Generalized weakness Current Visit: Yes Status: Acute (4) Hypertension Current Visit: Yes Status: Acute (5) History of CVA (cerebrovascular accident) Current Visit: Yes Status: Acute - Plan Physical Exam General: Alert, In no apparent distress, Oriented x3. HEENT: Mucous membr. moist/pink. Neck: Supple, JVD not distended Respiratory: Clear to auscultation bilaterally, Normal air movement Cardiovascular: No edema, Normal S1 S2, Irregular heart rate/rhythm Gastrointestinal: Normal bowel sounds, Soft and benign, Non-distended, No tenderness Musculoskeletal: No swelling, No tenderness Integumentary: No rashes, No cyanosis Neurological: Normal strength at 5/5 x4 extr, Cranial nerves 3-12 intact Noted low serum osmolality, normal urine osmolality and normal urine sodium suggesting SIADH causing hyponatremia rather than dehydration Nephrology input appreciated. Sodium level improved by 5 mEq over 12 hours. Nephrology recommended brief D5W infusion. Fluid restriction Continue to monitor BMP every 4 hours TSH and cortisol levels within normal limits Continue to hold hydrochlorothiazide. Continue home medications for atrial fibrillation and stroke. Continue Xarelto. Activity as tolerated.
[2022-10-10 16:14] LABS: Potassium 3.5 mmol/L (3.5-5.1)
[2022-10-10] MEDS ORDERED: DESMOPRESSIN 4 MCG/ML AMP IV ONE ×3 (16:30→17:00)
--- NOTE | 2022-10-10 18:42 | EKG ---
Test Date: 2022-10-09 Test Time: 10:15:29 Costume Design Teacher: LEVI MEASUREMENT RESULTS: Intervals: Rate: 74 OK: QRSD: 120 QT: 438 QTc: 486 [place]: P: OK: QRS: 39 T: 259 INTERPRETIVE STATEMENTS: Atrial fibrillation with premature ventricular or aberrantly conducted complexes Nonspecific intraventricular conduction delay ST & T wave abnormality, consider inferior ischemia or digitalis effect ST & T wave abnormality, consider anterolateral ischemia or digitalis effect Abnormal ECG Compared to ECG 12/06/2021 09:47:56 Intraventricular conduction delay now present Right-axis deviation no longer present Prolonged QT interval no longer present ST (T wave) deviation still present Possible ischemia still present Electronically Signed On 10-10-22 18:40:04 [employer] HEL[employer] by Doug Pinedo
[2022-10-10 19:14] LABS: Potassium 3.3 mmol/L (3.5-5.1)
--- NOTE | 2022-10-10 19:58 | P.PN ---
Date of Service: 10/11/22 Subjective: doing ok, no acute events overnight not much sleep sodium plateau'ing no new/worsening symptoms feels tired/generalized weakness; ambulated in [place] yesterday ROS: A complete review of systems was performed and is negative except as mentioned above Physical Exam: Gen: NAD, AOx3 HEENT: normal conjunctiva, sclera anicteric CV: irregularly irregular rhythm Pulm: non-labored respirations, clear bilaterally Abd: soft, non-tender, non-distended MSK: no contractures, no tenderness Neuro: normal speech, normal affect, moves all extremities vitals reviewed Problem List Hyponatremia, concern for SIADH Generalized weakness HTN h/o CVA Noted low serum osmolality, normal urine osmolality and normal urine sodium suggesting SIADH causing hyponatremia rather than dehydration Nephrology input appreciated Nephrology recommended brief D5W infusion. DDAVP Fluid restriction Sodium plateauing, will discuss further with nephrology salt tabs replace electrolytes TSH and cortisol levels within normal limits Continue to hold hydrochlorothiazide. Continue home medications for atrial fibrillation and stroke. Continue Xarelto. Activity as tolerated. VTE: xarelto Code: full Dispo: home, ~2-3 days
[2022-10-10] MEDS: ATORVASTATIN 80 MG TAB PO SCH (21:03)
[2022-10-10] MEDS: METOPROLOL TAR 25 MG TAB PO SCH (21:03)
[2022-10-10] MEDS ORDERED: THIAMINE 200 MG/2 ML INJ IVP ONE (21:15)
--- NOTE | 2022-10-10 22:22 | RAD REPORT ---
EXAM DESCRIPTION: US - Renal Ultrasound-Complete - 10/10/2022 10:13 pm CLINICAL HISTORY: hyponatremia ckd COMPARISON: <Comparisons> TECHNIQUE Sonographic grayscale and color flow images of the kidneys and bladder were obtained. FINDINGS: Both kidneys are normal in size, shape and echotexture. The right kidney measures 8.9 centimeter in length. No hydronephrosis, focal mass or perinephric flui d. The left kidney measures 9.8 centimeter in length. No hydronephrosis, focal mass or perinephric fluid . The urinary bladder is incompletely distended without gross abnormality seen. IMPRESSION: Unremarkable renal ultrasound.
[2022-10-10 22:24] LABS: Potassium 3.3 mmol/L (3.5-5.1); Troponin High Sensitivity 6.3 pg/mL (<58.9); Uric Acid 2.9 mg/dL (3.5-7.2)
[2022-10-10] MEDS ORDERED: POTASSIUM CL SA 10 MEQ TAB PO ONE (22:48)
[2022-10-10] MEDS: THIAMINE HCL 100 MG TABLET PO SCH (23:42)
[2022-10-11 02:28] LABS: Potassium 3.6 mmol/L (3.5-5.1)
--- NOTE | 2022-10-11 04:20 | CON ---
Date of Consultation: 10/10/2022 Chief Complaint: Hyponatremia, hypoosmolar state. Patient presented to the hospital because of gene ralized weakness. History Of Present Illness: Patient is a 72-year-old man with history of gastric ulcer, hypertension , atrial fibrillation, and history of stroke. The patient came to the hospital because of generalize d weakness. He was complaining of upper respiratory symptoms and nonproductive cough, sneezing, loss of appetite, which has been at least for 1 week prior to this admission. He went to [facility] 4 days before admission and tested negative of COVID and was instructed to come back to the emerg ency room for any new symptoms. The patient was complaining of generalized weakness and he decided t o come to the emergency room. He had test for COVID and it was negative. Influenza in the emergency room was also negative. Blood work showed severe hyponatremia. Sodium level was 110. Rechecked bl ood work showed sodium level was 106. The patient was found to have hypokalemia and hypophosphatemia . CT scan of the abdomen and pelvis done in the emergency room were unremarkable and show no acute d isease. Chest x-ray showed no acute cardiopulmonary disease. Of note, patient was started on hydroc hlorothiazide for hypertension at least 1 month ago. Prior to this admission, patient had poor appet ite and he consumed excessive amount of fluids. He was trying to hydrate himself and did not consume regular meal. The patient has history of gout and recently gout was asymptomatic. Review of Systems: General: Denies fever, chills. Eyes: Denies vision changes. Ears, Nose, Mouth, and Throat: Denies sore throat or earache. Respiratory: He had some nasal congestion, cough, sneezing. Denies hemoptysis. GI: Denies nausea, vomiting. Musculoskeletal: Complaining of generalized weakness, although he denies unilateral weakness. Denie d seizure or tremor. : Denies dysuria, hematuria, incomplete voiding. All other systems reviewed and all are negative. Past Medical History: Hypertension, GI bleeding, gastric and duodenal ulcer, chronic atrial fibrilla tion, stroke, and EGD 2015. Family History: Mother, heart disease. Brother, GI disease. Social History: Denies tobacco, alcohol, or illicit drugs. Physical Examination: General: Patient is awake, alert, follows commands. Eyes: Anicteric sclerae. EOMI. Ears, Nose, Mouth, and Throat: Oral mucosa moist. No pallor. Neck: Supple. No bruits. Lungs: Clear to auscultation bilaterally. Heart: S1, S2. Abdomen: Soft, benign. Extremities: No edema. Laboratory Data: Sodium 106, potassium 3.1, BUN 9, creatinine 1.01, glucose 150, total bilirubin 1.3 , AST 27, ALT 20, lipase 45. WBC 10, platelet count 309. Assessment And Plan: 1.Hyponatremia hypoosmolar secondary to excessive fluid intake and secondary to hydrochlorothiazide medication was stopped. The patient is on IV fluids. Primarily, he received normal saline and subse quently, he was switched to D5W to prevent hyponatremia overcorrection. Plan is to continue to monit or electrolytes. Adjust IV fluids and medication. 2.Upper respiratory symptoms, resolving. 3.Generalized weakness. Check TSH and cortisol level. In view of hyponatremia, plan is to check TS H and a.m. cortisol level. 4.Hypertension. Continue blood pressure medication, although patient cannot take hydrochlorothiazid e. 5.History of cerebrovascular accident per primary team, atrial fibrillation, and stroke. Patient is on Xarelto. EB/MODL Voice ID: [id number] Report ID: [id number]
[2022-10-11 06:50] LABS: Absolute Lymphocytes (CBC) 1.2 K/uL (0.7-4.9); Hematocrit 31.3 % (39.6-49.0); MCV 91.2 fL (80-100); MPV 6.8 fL (7.6-11.3); RBC Red Blood Cell Count 3.43 M/uL (4.33-5.43)
[2022-10-11 07:05] LABS: Magnesium 2.1 mg/dL (1.6-2.4); Phosphorus 1.3 mg/dL (2.5-4.9); Potassium 3.7 mmol/L (3.5-5.1)
[2022-10-11] MEDS: CLOPIDOGREL 75 MG TABLET PO SCH (08:48)
[2022-10-11] MEDS: THIAMINE HCL 100 MG TABLET PO SCH (08:48)
[2022-10-11] MEDS: PANTOPRAZOLE 40MG TABLET PO SCH ×2 (08:48→16:09)
[2022-10-11] MEDS: RIVAROXABAN 20 MG TABLET PO SCH (08:48)
[2022-10-11] MEDS: ENOXAPARIN 40 MG/0.4 ML SQ SCH (08:49)
[2022-10-11] MEDS: METOPROLOL TAR 25 MG TAB PO SCH ×2 (08:54→22:01)
[2022-10-11] MEDS ORDERED: allopurinoL 300 MG TAB PO SCH (09:00)
[2022-10-11 10:15] LABS: Blood Morphology Comment NOTED (NOT SEEN); Platelet Estimate ADEQ; White Blood Cell Scan OK (OK)
[2022-10-11 10:16] LABS: Burr Cells 1+
[2022-10-11 11:23] LABS: Potassium 3.8 mmol/L (3.5-5.1)
[2022-10-11] MEDS ORDERED: POTASSIUM CL SA 10 MEQ TAB PO ONE (11:38)
[2022-10-11] MEDS ORDERED: FUROSEMIDE 20 MG TABLET PO ONE (13:31)
[2022-10-11] MEDS: SODIUM CHLORIDE 1 GM TAB PO SCH (16:09)
[2022-10-11] MEDS: FUROSEMIDE 20 MG TABLET PO SCH (16:10)
--- NOTE | 2022-10-11 16:20 | PN ---
Date of Progress Note: 10/11/2022 Subjective: The patient was admitted with hyponatremia, had over correction. For that reason, the p atient was received desmopressin. Sodium has been plateaued for the last few hours. The patient fee ling well, awake. Physical Examination: Vital Signs: Blood pressure 131/74, pulse of 64, afebrile. The patient had good urine output of 140 0 even balance. Chest: Clear to auscultation. Heart: S1, S2. Regular. Abdomen: Soft, nontender. Extremity: No edema. Neurologic: Alert. No focality. No tremors. Current Medications: Include Plavix, Xarelto, atorvastatin, metoprolol 25 b.i.d., Zofran, pantoprazo le, allopurinol 300 daily, KCl, thiamin. Laboratory Data: Hemoglobin 11.6. Sodium 114, potassium 3.8, bicarb 25, BUN 4, creatinine 0.8, calc ium 8.4. Urine sodium 48, urine potassium 18, chloride 44. 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 The patient plateaued. St ill hyponatremia. The SIADH supported with high urine sodium and low uric acid. I am going to go ah ead and start the patient on salt tablet and Lasix and we will follow up the patient. Hypothyroidism has been ruled out and adrenal insufficiency also ruled out. We will follow up the patient closely. 2.Gout. I am going to go ahead and decrease allopurinol to 100 mg and we will follow up the patient . 3.Hypertension, controlled, optimal. Continue current medication. Start the patient on Lasix as ab ove. SNELL/HEATHER Voice ID: [id number] Report ID: [id number]
[2022-10-11] MEDS ORDERED: FUROSEMIDE 20 MG TABLET PO SCH (17:00)
[2022-10-11 19:20] LABS: Potassium 3.9 mmol/L (3.5-5.1)
[2022-10-11 19:47] LABS: Specific Gravity < 1.005 (1.005-1.030); Urine Bilirubin NEGATIVE (Negative); Urine Blood Negative (Negative); Urine Clarity Clear (Clear); Urine Color Colorless (Yellow); Urine Glucose NEGATIVE (Negative); Urine Protein NEGATIVE (Negative); Urine Urobilinogen Normal (Normal)
[2022-10-11] MEDS: ATORVASTATIN 80 MG TAB PO SCH (22:01)
[2022-10-12 04:04] LABS: Albumin 3.3 g/dL (3.4-5.0); Phosphorus 1.5 mg/dL (2.5-4.9); Potassium 3.9 mmol/L (3.5-5.1); Uric Acid 2.7 mg/dL (3.5-7.2)
[2022-10-12] MEDS: POTASS/SODIUM PHOSPHATE 1 PKT POWD.PACK PO SCH ×3 (06:05→10:20)
--- NOTE | 2022-10-12 07:11 | P.PN ---
Date of Service: 10/12/22 Subjective: doing ok, no acute events overnight no new/worsening symptoms tolerating regular diet, ambulating ROS: A complete review of systems was performed and is negative except as mentioned above Physical Exam: Gen: NAD, AOx3 HEENT: normal conjunctiva, sclera anicteric CV: irregularly irregular rhythm, no edema Pulm: non-labored respirations, clear bilaterally Abd: soft, non-tender, non-distended MSK: no contractures, no tenderness Neuro: normal speech, normal affect, moves all extremities vitals reviewed Problem List Hyponatremia, secondary to SIADH Generalized weakness HTN h/o CVA low serum osmolality, normal urine osmolality and normal urine sodium suggesting SIADH causing hyponatremia rather than dehydration Nephrology input appreciated Nephrology recommended brief D5W infusion. DDAVP Fluid restriction salt tabs + lasix started 10/11, Na improving replace electrolytes TSH and cortisol levels within normal limits Continue to hold hydrochlorothiazide. Continue home medications for atrial fibrillation and stroke. Continue Xarelto. Activity as tolerated. VTE: xarelto Code: full Dispo: home, ~1 day
[2022-10-12] MEDS: THIAMINE HCL 100 MG TABLET PO SCH (08:23)
[2022-10-12] MEDS: allopurinoL 100 MG TAB PO SCH (08:23)
[2022-10-12] MEDS: CLOPIDOGREL 75 MG TABLET PO SCH (08:23)
[2022-10-12] MEDS: RIVAROXABAN 20 MG TABLET PO SCH (08:24)
[2022-10-12] MEDS: PANTOPRAZOLE 40MG TABLET PO SCH ×2 (08:24→17:07)
[2022-10-12] MEDS: SODIUM CHLORIDE 1 GM TAB PO SCH ×2 (08:24→17:07)
[2022-10-12] MEDS: FUROSEMIDE 20 MG TABLET PO SCH (08:31)
[2022-10-12] MEDS: METOPROLOL TAR 25 MG TAB PO SCH ×2 (08:31→21:05)
[2022-10-12] MEDS ORDERED: POTASSIUM CL SA 10 MEQ TAB PO ONE (09:00)
[2022-10-12] MEDS ORDERED: POTASSIUM PHOS 20 MM in NA CHLORIDE 0.9% 500 ML IV ONE (10:12)
--- NOTE | 2022-10-12 12:58 | PN ---
Date of Progress Note: 10/12/2022 Subjective: The patient was admitted with symptomatic hyponatremia secondary to SIADH/hydrochlorothi azide induced. The patient received desmopressin to slow the correction. Currently, we started on s alt tablet. Yesterday, sodium rising appropriately. Physical Examination: Vital Signs: Blood pressure 156/80, pulse of 65, afebrile. Chest: Clear to auscultation. Heart: S1, S2. Regular. Abdomen: Soft, nontender. Extremities: No edema. Neurologic: Alert. No focality. No tremor. Laboratory Data: Hemoglobin 11.6. Sodium 120, potassium 3.9, bicarb 25, BUN 4, creatinine 0.8, uric acid 2.7, calcium 8.5, phosphorus 1.5, albumin 3.3. Current Medications: The patient on include; 1.Plavix. 2.Xarelto. 3.Atorvastatin. 4.Metoprolol. 5.Lasix 20 daily. 6.Zofran. 7.Salt tablet 1 g b.i.d. 8.Thiamin. Assessment And Plan: 1.Hyponatremia, multifactorial, secondary to SIADH/hydrochlorothiazide induced. Responds to current salt tablet with Lasix. We will continue to monitor. 2.Hypertension, not controlled. I am going to go ahead and resume the patient's amlodipine, keep holding hydrochlorothiazide. 3.Hypophosphatemia. We will supplement. MARKUS Voice ID: [id number] Report ID: [id number]
[2022-10-12] MEDS: AMLODIPINE 10 MG TAB PO SCH (13:28)
[2022-10-12] MEDS: ATORVASTATIN 80 MG TAB PO SCH (21:05)
[2022-10-13 06:33] LABS: Albumin 3.7 g/dL (3.4-5.0); Phosphorus 2.2 mg/dL (2.5-4.9); Potassium 3.7 mmol/L (3.5-5.1)
[2022-10-13] MEDS: POTASS/SODIUM PHOSPHATE 1 PKT POWD.PACK PO SCH ×3 (08:18→10:13)
[2022-10-13] MEDS: THIAMINE HCL 100 MG TABLET PO SCH (08:19)
[2022-10-13] MEDS: allopurinoL 100 MG TAB PO SCH (08:19)
[2022-10-13] MEDS: CLOPIDOGREL 75 MG TABLET PO SCH (08:19)
[2022-10-13] MEDS: SODIUM CHLORIDE 1 GM TAB PO SCH (08:19)
[2022-10-13] MEDS: METOPROLOL TAR 25 MG TAB PO SCH (08:20)
[2022-10-13] MEDS: RIVAROXABAN 20 MG TABLET PO SCH (08:20)
[2022-10-13] MEDS: PANTOPRAZOLE 40MG TABLET PO SCH (08:20)
[2022-10-13] MEDS: FUROSEMIDE 20 MG TABLET PO SCH (08:20)
[2022-10-13] MEDS: AMLODIPINE 10 MG TAB PO SCH (08:21)
[2022-10-13 08:22] VITALS: BP 133/68
[2022-10-13 08:53] VITALS: TEMP 98
[2022-10-13] MEDS ORDERED: POTASSIUM CL SA 10 MEQ TAB PO ONE (09:00)
--- NOTE | 2022-10-13 09:10 | P.DS ---
Admission Date: 10/09/22 Discharge Date: 10/13/22 Disposition: ROUTINE DISCHARGE Reason for Admission: Generalized weakness Consultations: Nephrology - Dr. Gonzalez Brief History of Present Illness: 72-year-old gentleman with a history of gastric ulcer, hypertension, atrial fibrillation and stroke was brought to the emergency department due to generalized weakness. Symptoms preceded by 1 week of upper respiratory symptoms of nonproductive cough, sneezing, loss of appetite. He went to urgent care clinic 4 days ago, tested negative for COVID-19. Upper respiratory symptoms followed by generalized weakness. Patient attributed her weakness to decreased oral intake. He denies any vomiting or diarrhea. He denied recent fever. He tested negative for COVID 19 and influenza here in the ED. blood work showed severe hyponatremia with a sodium of 110, hypochloremia and hypokalemia. CT abdomen and pelvis done in the ED is unremarkable, shows no acute disease. Chest x-ray shows no acute cardiopulmonary disease. Noted he is on hydrochlorothiazide for hypertension which could be contributing to the hyponatremia. Patient is hospitalized for further management. Hospital Course: Problem List Hyponatremia, secondary to SIADH Generalized weakness HTN h/o CVA Patient presented with symptomatic hyponatremia. Nephrology was consulted. Hyponatremia was felt secondary to SIADH/hydrochlorothiazide induced. Throughout the hospitalization, patient received IV fluids initially, DDAVP, transition to salt tablets with Lasix. His sodium steadily improved along with his symptoms. On day of discharge, he was ambulating without difficulty, tolerating regular diet, voiding without issue. On discussion with nephrology, patient was deemed stable for discharge home Patient to continue Lasix, salt tabs, and addition of amlodipine for his hypertension. Discontinue hydrochlorothiazide. Follow-up: PCP in 3 to 5 days Nephrology: ~2 weeks Return to ER if symptoms worsen Diet: Regular Activity: Ad lin Follow up with a Family Medicine Physician of your choice: STEPH ABARCA, ERIKA [address] [place], [place] [id number] JANENE Kim O, AALIYAH [address] [place], [place] [address] CIERRA ABARCA, MARSHALL Alaniz [address] [place] [address], [address] [place], [place] [address] MARIANO ABARCA, ANGEL [address] [place] [address] LEONARDO LEY MD [address] [facility], [address] [place] [address] PAT DAIGLE MD [address] [facility], [place] [address] [place] [address] JARRELL ABARCA, KARLA K [address] [facility], [place] [address] [place] [address] TEJA CORONADO DO LY [address] [facility], [address] [place] [address] SUZIE PURCHASING SPECIALIST, HERBERT K [address] [facility], [address] [place] [address] DIONY DEWITT DO [address] [facility], [address] [place] [address] Follow up with a Adding Machine Servicer of your choice: MARK ARELLANO DO [address] [place] [address] SAEMER ABARCA, TORITO [address], [place] [address] CHARLIE ABARCA, DANA [address], [place] [address] KOTA ABARCA, [address], [address] [place] [address] JULIUS WILLOUGHBY MD [address] [place] [address] HUNTER URIAS MD [address], [place] [address] HE ABARCA, [address] [address] Vital Signs/Physical Exam: Temp Pulse Resp BP Pulse Ox 98.0 F 66 16 133/68 99 10/13/22 08:00 10/13/22 08:21 10/13/22 08:00 10/13/22 08:21 10/13/22 08:00 Physical Exam: Gen: NAD, AOx3 HEENT: normal conjunctiva, sclera anicteric CV: irregularly irregular rhythm, no edema Pulm: non-labored respirations, clear bilaterally Abd: soft, non-tender, non-distended MSK: no contractures, no tenderness Neuro: normal speech, normal affect, moves all extremities vitals reviewed Laboratory Data at Discharge: WBC 6.70 K/uL (4.3-10.9) 10/11/22 06:36 Hgb 11.6 g/dL (13.6-17.9) L 10/11/22 06:36 Hct 31.3 % (39.6-49.0) L 10/11/22 06:36 Plt Count 281 K/uL (152-406) 10/11/22 06:36 PT 18.3 SECONDS (9.5-12.5) H 10/09/22 14:24 INR 1.66 10/09/22 14:24 Sodium 126 mmol/L (136-145) L D 10/13/22 05:26 Potassium 3.7 mmol/L (3.5-5.1) 10/13/22 05:26 BUN 10 mg/dL (7-18) 10/13/22 05:26 Creatinine 1.12 mg/dL (0.70-1.30) 10/13/22 05:26 Glucose 114 mg/dL (74-106) H 10/13/22 05:26 Uric Acid 2.7 mg/dL (3.5-7.2) L 10/12/22 02:34 Phosphorus 2.2 mg/dL (2.5-4.9) L 10/13/22 05:26 Magnesium 2.3 mg/dL (1.6-2.4) 10/13/22 05:26 Total Bilirubin 1.3 mg/dL (0.2-1.0) H 10/09/22 10:19 AST 27 U/L (15-37) 10/09/22 10:19 ALT 20 U/L (16-61) 10/09/22 10:19 Alkaline Phosphatase 108 U/L (45-117) 10/09/22 10:19 Triglycerides 62 mg/dL (<150) 10/10/22 06:10 Cholesterol 110 mg/dL (<200) 10/10/22 06:10 HDL Cholesterol 55 mg/dL (40-60) 10/10/22 06:10 Cholesterol/HDL Ratio 2.00 10/10/22 06:10 Lipase 45 U/L (13-75) 10/09/22 10:19 Home Medications: Allopurinol 300 mg PO DAILY 12/06/21 Atorvastatin Calcium [Lipitor] 80 mg PO BEDTIME #30 tab 12/08/21 Clopidogrel Bisulfate [Plavix*] 75 mg PO DAILY #30 tablet 12/08/21 Pantoprazole [Protonix Tab*] 40 mg PO BIDAC #60 tab 12/08/21 Rivaroxaban [Xarelto] 20 mg PO DAILY #30 tablet 12/08/21 Metoprolol Tartrate [Lopressor*] 25 mg PO BID 10/09/22 Amlodipine [Norvasc*] 10 mg PO DAILY 30 Days #30 tab 10/13/22 Furosemide [Lasix*] 20 mg PO DAILY 30 Days #30 tab 10/13/22 Sodium Chloride Tab [Sodium Chloride*] 1 gm PO BIDWM 30 Days #60 tab 10/13/22 Thiamine HCl [Vitamin B-1*] 100 mg PO DAILY 30 Days #30 tab 10/13/22 New Medications: Furosemide [Lasix*] 20 mg PO DAILY 30 Days #30 tab Amlodipine [Norvasc*] 10 mg PO DAILY 30 Days #30 tab Sodium Chloride Tab [Sodium Chloride*] 1 gm PO BIDWM 30 Days #60 tab Thiamine HCl [Vitamin B-1*] 100 mg PO DAILY 30 Days #30 tab Physician Discharge Instructions: PROBLEM: Hyponatremia GOAL: Clear understanding of disease process INSTRUCTIONS: Patient presented with symptomatic hyponatremia. Nephrology was consulted. Hyponatremia was felt secondary to SIADH/hydrochlorothiazide induced. Throughout the hospitalization, patient received IV fluids initially, DDAVP, transition to salt tablets with Lasix. His sodium steadily improved along with his symptoms. On day of discharge, he was ambulating without difficulty, tolerating regular diet, voiding without issue. On discussion with nephrology, patient was deemed stable for discharge home Patient to continue Lasix, salt tabs, and addition of amlodipine for his hypertension. Discontinue hydrochlorothiazide. Follow-up: PCP in 3 to 5 days Nephrology: ~2 weeks Return to ER if symptoms worsen Diet: Regular Activity: Ad lin Follow up with a Family Medicine Physician of your choice: STEPH ABARCA, ERIKA Ardon [address] [place] [address] JANENE Kim O, AALIYAH [address] [address] CIERRA ABARCA, MARSHALL Alaniz [address] [facility], [facility] [address] [place] [address] ANGEL QUINTANA MD [address] [place] [address] LEONARDO LEY MD [address] [facility], [address] [place] [address] PAT DAIGLE MD [address] [facility], [place] [address] JARRELL ABARCA, KARLA K [address] [facility], [place] [address] TEJA CORONADO DO LY [address] [facility], [address] [place] [address] SUZIE SILVA, HERBERT K [address] [facility], [address] [place] [address] RENATE GUERRA DIONY [address] [facility], [address] [place] [address] Follow up with a Adding Machine Servicer of your choice: MARK ARELLANO DO [address] [place] [address] SAMEER ABARCA, CROSSRODRIGO [address], [place] [address] CHARLIE ABARCA, DANA [address], [place] [address] KOTA ABARCA, [address], [address] [place] [address] CASE ABARCA, JULIUS [address] [place] [address] BRIDGETT ABARCA, HUNTER [address], [place] [address] BREANNA CUTLER MD [address] [place] [id number] Diet: Regular Activity: Ad lin Followup: NONE,NONE [Primary Care Provider] - (Call to make an appointment) Time spent managing pt's care (in minutes): 45
[2022-10-13 09:25] VITALS: O2SAT 100
--- NOTE | 2022-10-13 13:47 | PN ---
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 The patient was treated, recovered. Physical Examination: Vital Signs: Blood pressure 133/68, pulse of 66. Chest: Clear to auscultation. Heart: S1, S2. Regular. Abdomen: Soft, nontender. Extremity: No edema. Neurologic: Alert. No focality. Laboratory Data: Hemoglobin 11.6. Sodium 126, potassium 3.7, bicarb 29, BUN 10, creatinine 1.1, GFR 69. Current Medications: The patient on include salt tablet 1 g b.i.d., metoprolol, allopurinol, pantopr azole, Lasix 20, amlodipine 10 mg. 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 Continue salt tablet and Lasi x. The patient to follow up as outpatient. 2.Hypertension, controlled, optimal. Keep holding hydrochlorothiazide. 3.Atrial fibrillation, stable. The patient cleared from the Renal standpoint for discharge planning . Follow up in 2 to 3 weeks. MARKUS Voice ID: [id number] Report ID: [id number]
--- NOTE | 2022-10-13 13:47 | PN ---
Date of Progress Note: 10/13/2022 Subjective: The patient was admitted with hyponatremia. The patient has hyponatremia, multifactoria l, secondary to SIADH secondary to atypical pneumonia, superimposed with hydrochlorothiazide. The pa tiecresencio was placed on salt tablet and Lasix. Sodium corrected appropriately. Physical Examination: Vital Signs: Blood pressure of 156/76, pulse of 79, afebrile. Chest: Clear to auscultation. Heart: S1, S2. Regular. Abdomen: Soft, nontender. Extremities: No edema. Neurologic: Alert. No focality. Laboratory Data: Hemoglobin 11.3. Sodium of 137, potassium 3. DICTATION ENDS HERE ALIS/HEATHER Voice ID: [id number] Report ID: [id number]
== END 2022-10-13 10:51 | disposition home or self-care (01) | DRG 643 ==
LOC: ER 09:47 → ERHOLD 13:40 → 2ND 14:04
PROVIDERS: ADMIT Internal Medicine; ATTEND Hospitalist
DX: E22.2 Syndrome of inappropriate secretion of antidiuretic hormone (principal); J18.9 Pneumonia, unspecified organism; I48.20 Chronic atrial fibrillation, unspecified; I10 Essential (primary) hypertension; M10.9 Gout, unspecified; E83.39 Other disorders of phosphorus metabolism; E87.6 Hypokalemia; T50.2X5A Adverse effect of carbonic-anhydrase inhibitors, benzothiadiazides and other diuretics, initial encounter; Z79.02 Long term (current) use of antithrombotics/antiplatelets; Z79.01 Long term (current) use of anticoagulants; Z86.73 Personal history of transient ischemic attack (TIA), and cerebral infarction without residual deficits; Z79.899 Other long term (current) drug therapy; Z20.822 Contact with and (suspected) exposure to COVID-19
CPT/HCPCS: 0240U; 36415; 71045; 74177; 76770; 80048; 80053; 80061; 80069; 81003; 82043; 82140; 82306; 82435; 82533; 82550; 82570; 83519; 83690; 83735; 83930; 83935; 83970; 84100; 84132; 84156; 84300; 84439; 84443; 84484; 84550; 84560; 85025; 85610; 93005; 94760; 96361; 96374; 97161; 99285; J1650; J2405; J2597; J3411; J7030; J7040; Q9967